=== PATIENT | male | born 1970 | race Caucasian/White ===

== ENCOUNTER → 2017-09-17 08:26 | Outpatient (CLI) | payer OTHER, SELFPAY ==
--- NOTE | 2017-09-17 | DI.ECHO.S_ITS ---
[facility]---------+ [facility] +---------+ : : [address] : [address] : : : : [id number] : : : : Phone: [phone]+ Echocardiogram Report + + :Name: TEN BROOSK Study Date: 09/17/2017 Height: 71 in : :[facility] Exam Location: [facility] Weight: 185 lb : : Gender: Male BSA: 2.0 m2 : :: 1970 Age: 47 yrs BP: 125/95 mmHg: :Reason For Study: Chemotherapy F/U (ICD Code V67.2) : : Performed By: Zenaida Page : :Referring: HUGO MCCALL : + + Interpretation Summary Left ventricular systolic function is low normal with the ejection fraction visually estimated to be 50-55% without focal wall motion abnormalities and appears slightly less dynamic compared to the previous study. The left ventricle is normal in size and diastolic parameters suggest normal left ventricular diastolic function and normal filling pressures. The right ventricle is mildly dilated and right ventricular systolic function is at the lower limits of normal. The right ventricle appears slightly larger and slightly less dynamic compared to the previous study. The right ventricular systolic pressure is estimated at 24 mmHg assuming a right atrial pressure of 3 mm Hg, and is unchanged compared to the previous study. The left atrium is severely dilated and the right atrium is mild to moderately dilated. Both atria have significantly increased in size since the prior echo exam. There is mild mitral regurgitation that is unchanged compared to the previous study but there is no other significant valvular heart disease. There is no pericardial effusion. Procedure: A two-dimensional transthoracic echocardiogram with color flow and Doppler was performed. The study quality was technically adequate. Comparison is made with the echocardiogram of 05/13/2017. The patient was in sinus bradycardia with heart rates between 54-63 bpm during the exam. Left Ventricle: The left ventricle is normal in size. Left ventricular wall thickness is normal. Left ventricular systolic function is low normal. The ejection fraction is estimated to be 50-55%. There are no focal wall motion abnormalities. This is slightly less dynamic compared to the previous study. Assessment of diastolic parameters indicates normal left ventricular diastolic function and normal filling pressures. Right Ventricle: The right ventricle is mildly dilated. Right ventricular systolic function is at the lower limits of normal. This is slightly larger and slightly less dynamic compared to the previous study. Atria: The left atrium is severely dilated. Both atria have significantly increased in size since the prior echo exam. The right atrium is mild to moderately dilated. There is no Doppler evidence for an interatrial shunt. Mitral Valve: The mitral valve is normal in structure and function. There is mild mitral regurgitation. This is unchanged compared to the previous study. Aortic Valve: The aortic valve is trileaflet. The aortic valve opens well. No aortic regurgitation is present. Tricuspid Valve: The tricuspid valve leaflets are thin and pliable. There is trace tricuspid regurgitation. The right ventricular systolic pressure is estimated at 24 mmHg assuming a right atrial pressure of 3 mm Hg. This is unchanged compared to the previous study. Pulmonic Valve: The pulmonic valve is not well visualized. There is trace pulmonic regurgitation. This is unchanged compared to the previous study. There is no other significant valvular heart disease. Great Vessels: The aortic root is normal size. The ascending aorta is normal in size. The aortic arch could not be visualized. The pulmonary artery is not well visualized, but is probably normal size. The IVC is of normal diameter and collapses greater than 50% with a sniff. This suggests a low right atrial pressure of 3 mm Hg. Pericardium/ Pleura There is no pericardial effusion. There is no pleural effusion. MMode/2D Measurements & Calculations LVIDd: 5.0 cm Ao root diam: 3.7 cm LVIDs: 4.0 cm asc Aorta Diam: 3.1 cm FS: 19.4 % EPSS: 0.15 cm IVSd: 0.81 cm LVPWd: 0.68 cm LV motley. diameter/BSA (cm/m^2): 2.5 LV sys. diameter/BSA (cm/m^2): 2.0 LA A2 area: 31.8 cm2 RA long axis: 5.6 cm LA A4 area: 25.3 cm2 RA area: 22.9 cm2 LA length (vol): 6.0 cm RA vol: 79.5 ml LA vol: 113.8 ml RA : 39.0 ml/m2 LA vol index: 55.8 ml/m2 IVC diam: 2.1 cm RVD1 (basal): 4.9 cm Doppler Measurements & Calculations Ao V2 max: 116.7 cm/sec LVOT Max Eric: 82.1 cm/sec Ao V2 mean: 87.5 cm/sec LV V1 max P.7 mmHg Ao max P.5 mmHg LV V1 VTI: 16.5 cm Ao mean P.3 mmHg sev ratio: 0.76 Ao V2 VTI: 21.8 cm MV E max eric: 60.8 cm/sec TR max eric: 231.5 cm/sec MV A max eric: 39.2 cm/sec TR max P.4 mmHg MV E/A: 1.6 PA V2 max: 73.9 cm/sec Med Peak E' Eric: 7.5 cm/sec PA V2 mean: 54.9 cm/sec E/E' med: 8.1 PA mean P.3 mmHg Lat Peak E' Eric: 10.9 cm/sec PA Accel Time: 0.13 sec E/E' lat: 5.6 E/e' average: 6.8 MV dec time: 0.28 sec MV P1/2t: 81.9 msec MV P1/2t max eric: 61.0 cm/sec MVA(P1/2t): 2.7 cm2 Reading Physician:SHADI
--- NOTE | 2017-11-04 14:34 | ONC.NAV ---
Description: T/C Activity: Left message for pt to call me, requested return call. Plan to discuss pt's transfer of care back to [facility].
--- NOTE | 2017-11-05 15:02 | ONC.NAV ---
Description: T/C re: transfer of care back to [facility] Activity: Pt returned this WOOD HEEL FLAP TRIMMER's call re: coordination of care from [facility] back to [facility]. Pt states that he is feeling very glad to be able to return to [facility] for his ongoing care needs. He has an important appointment at [facility] on 11/13, at which time he will be getting scanned and seen by his Oncologist there. At that appointment, they will discuss whether or not he is a candidate for a stem cell transplant, or if a different type of treatment will be recommended, depending on the results. We discussed a plan for this WOOD HEEL FLAP TRIMMER to call him after Labor Day weekend, to determine what the next steps are and needs that we can support for him here in his [facility].
--- NOTE | 2017-11-26 14:51 | ONC.NAV ---
Description: T/C re: continued plan of care Activity: Left a message for patient inquiring about the outcome from his [facility] visit, and if he is planning on resuming care here at [facility], or [place]. Requested a return call.
--- NOTE | 2017-11-28 11:09 | ONC.NAV ---
Description: T/C from pt's re: plan of care Activity: Pt's returned this SURGICAL AIDES TEACHER's call re: his medical status and plan for continued care, after his [facility] appointment at the end of October. She shared that pt has been actively involved in treatment at [facility], and that this coming Saturday he has a surgical biopsy procedure to take tissue samples of the remaining large mass underneath his colon. Depending on the pathology, he will either move forward with transplant (if it turns out to be large B cell lymphoma), or develop a new plan if it's follicular lymphoma. Either way, he will be remaining at [facility] for his care for now. She also stated that once he has a plan, and he can receive treatments here in [place], that they will most definately be calling and re-establishing care here.
--- NOTE | 2017-12-24 13:40 | ONC.NAV ---
Description: Care Coordination re: Auth for Neulasta injections Activity: This GREASE REFINING SUPERVISOR requested assistance from [place] case-manager internal for assistance in obtaining Neulasta authorizations, per the request of CATIE Horton. Please see the secure email correspondence below: Orion Rehman, I wanted to reach out to you and see if we could ask for your assistance in getting an authorization for 2-doses of Neulasta. He is currently getting prepped by [facility] for pre-stem cell transplant, however he is asking if he can get his Neulasta shot here both this month and next month, instead of driving all the way to [place] for just an injection. This would be so helpful for us if you can help. Thanks so much, Vanessa
--- NOTE | 2018-01-02 13:47 | ONC.NAV ---
Description: T/C re: [facility]/Auth for Neulasta Activity: Called Shea RN coordinator at [facility] ([phone]) to clarify that we were unable to obtain an auth for this medication, due to no response from [place] case-manager family, and are needing to request that [facility] obtain whatever authorizations and medications for pt that he needs due to this barrier. Left the same message for pt on their home voicemail.
== END ==
PROVIDERS: Family Provider Specialist; Visit Provider Family Medicine
DX: I51.7 Cardiomegaly (principal); Z79.899 Other long term (current) drug therapy
CPT/HCPCS: 93306

== ENCOUNTER → 2022-11-09 07:23 | Outpatient (CLI) | payer OTHER, SELFPAY | PROVIDERS: Family Provider Family Medicine; PCP Family Medicine; Referring Provider Family Medicine; Visit Provider Family Medicine | DX: R06.00 Dyspnea, unspecified (principal); C85.90 Non-Hodgkin lymphoma, unspecified, unspecified site; Z92.21 Personal history of antineoplastic chemotherapy | CPT/HCPCS: 94060; 94726; 94729 ==

== ENCOUNTER → 2022-11-12 09:19 | Outpatient (CLI) | payer OTHER, SELFPAY ==
--- NOTE | 2022-11-12 | DI.ECHO.S_ITS ---
[facility] +---------+ [facility] +---------+ : : [address] : : : : [place] : : : : [id number] : : : : Phone: [phone]---------+ Echocardiogram Report + + :Name: TEN BROOKS Study Date: 11/12/2022 Height: 71 in : :[facility] ReadingLocation: Weight: 180 lb : : Gender: Male BSA: 2.0 m2 : :: 1970 Age: 52 yrs BP: 146/111 mmHg: :Reason For Study: Dyspnea : :Ordering Physician: STEFANY, : :HUGO Brock Performed By: Lianne Keita : :Referring: HUGO MCCALL : + + Interpretation Summary Left ventricular systolic function is probably normal. The ejection fraction is estimated to be 45-50%. There are no obvious focal wall motion abnormalities noted but poor endocardial definition reduces the sensitivity for the detection of such. There is mild tricuspid regurgitation. Procedure: A two-dimensional transthoracic echocardiogram with color flow and Doppler was performed. The study quality was technically adequate. Comparison is made with the echocardiogram of 09/17/2017. The patient was in atrial fibrillation with heart rates between 60-165 bpm during the exam. Left Ventricle: The left ventricle is normal in size. Left ventricular systolic function is probably normal. The ejection fraction is estimated to be 45-50%. There are no obvious focal wall motion abnormalities noted but poor endocardial definition reduces the sensitivity for the detection of such. Diastolic function could not be accurately assessed due to atrial fibrillation. Right Ventricle: The right ventricle is normal in size and function. Atria: The left atrium is borderline dilated. Right atrial size is normal. There is no Doppler evidence for an interatrial shunt. Mitral Valve: The mitral valve is normal. There is no mitral valve stenosis. There is trace mitral regurgitation. Aortic Valve: The aortic valve is trileaflet. The aortic valve opens well. There is no aortic valve stenosis. No aortic regurgitation is present. Tricuspid Valve: The tricuspid valve is normal. There is no tricuspid stenosis. There is mild tricuspid regurgitation. Pulmonic Valve: The pulmonic valve leaflets are thin and pliable; valve motion is normal. There is no pulmonic valvular stenosis. There is trace pulmonic regurgitation. Great Vessels: The aortic root is normal size. The ascending aorta is normal in size. The pulmonary artery is normal size. The IVC is of normal diameter and collapses greater than 50% with a sniff. This suggests a low right atrial pressure of 3 mm Hg. Pericardium/ Pleura There is no pericardial effusion. There is no pleural effusion. MMode/2D Measurements & Calculations LVIDd: 3.8 cm LVOT diam: 2.0 cm LVIDs: 2.7 cm Ao root diam: 3.3 cm FS: 28.9 % asc Aorta Diam: 3.2 cm IVSd: 0.80 cm LVPWd: 0.70 cm LV motley. diameter/BSA (cm/m^2): 1.9 LV sys. diameter/BSA (cm/m^2): 1.3 LA A2 area: 24.5 cm2 RA long axis: 4.4 cm LA A4 area: 16.2 cm2 RA area: 11.8 cm2 LA length (vol): 6.1 cm RA vol: 26.9 ml LA vol: 55.3 ml RA : 13.3 ml/m2 LA vol index: 27.4 ml/m2 RVD1 (basal): 3.7 cm LVLs ap4: 6.6 cm LVLd ap2: 7.8 cm TAPSE_phl: 2.3 cm LVLs ap2: 7.1 cm Doppler Measurements & Calculations Ao V2 max: 144.7 cm/sec LVOT Max Eric: 102.0 cm/sec Ao V2 mean: 100.6 cm/sec LV V1 max P.2 mmHg Ao max P.0 mmHg LV V1 VTI: 15.3 cm Ao mean P.7 mmHg YUNI(I,D): 1.8 cm2 Ao V2 VTI: 27.2 cm YUNI(V,D): 2.2 cm2 sev ratio: 0.56 YUNI indexed to BSA (cm^2/m^2): 0.88 PA V2 max: 123.0 cm/sec SV(LVOT): 48.1 ml PA V2 mean: 90.2 cm/sec PA mean P.0 mmHg AV VR_phl: 0.70 YUNI(VTI)/BSA_phl: 0.88 Reading Physician:10:25 AM
== END ==
PROVIDERS: Family Provider Family Medicine; PCP Family Medicine; Referring Provider Family Medicine; Visit Provider Family Medicine
DX: C85.90 Non-Hodgkin lymphoma, unspecified, unspecified site (principal); I07.1 Rheumatic tricuspid insufficiency; R06.00 Dyspnea, unspecified; Z92.21 Personal history of antineoplastic chemotherapy
CPT/HCPCS: 93306

== ENCOUNTER → 2023-04-02 17:05 | Outpatient (CLI) | payer OTHER, SELFPAY | PROVIDERS: Family Provider Family Medicine; PCP Family Medicine; Referring Provider Family Medicine; Visit Provider Family Medicine | DX: R06.00 Dyspnea, unspecified (principal); T50.995A Adverse effect of other drugs, medicaments and biological substances, initial encounter | CPT/HCPCS: 94060; 94729 ==

== ENCOUNTER 2023-07-01 18:59 | Emergency (ER) | payer OTHER, SELFPAY ==
[2023-07-01] VITALS (12 sets, daily range): BP systolic 114–168; BP diastolic 63–80; PULSE 83–104; RESP 17–39; TEMP 37–38.4; O2SAT 94–95; BMI 25.1
--- NOTE | 2023-07-01 19:21 | DI.RAD.S_ITS ---
PROCEDURE: XR CHEST 1V INDICATIONS: suspected sepsis TECHNIQUE: One view of the chest was acquired. COMPARISON: [facility], , CHEST 1 VIEW, 05/01/2017, 15:39. FINDINGS: Surgical changes and devices: Right chest wall Port-A-Cath tip is in SVC. Lungs and pleura: Subtle increased opacity in left infrahilar region and left lung base is seen. Right lung is clear. No pleural effusions or pneumothorax. Mediastinum: Mediastinal contours appear normal. Heart size is normal. Bones and chest wall: No suspicious bony lesions. Overlying soft tissues appear unremarkable. IMPRESSION: Finding is concerning for small left lower lobe infiltrate versus atelectasis. No pleural effusion or pneumothorax. Dictated by: David Sneed M.D. on 07/01/2023 at 19:57 Approved by: David Sneed M.D. on 07/01/2023 at 19:58
[2023-07-01 19:48] LABS: Bacteria Urine Occasional (0-1); Culture Indicated Urine Cult Not Indicated; RBC Urine None Seen (0-5/HPF); Squamous Epithelial Cell Urine None Seen (0-5/HPF); Urine Volume 10mL (spun); WBC Urine 0-1/HPF (0-5/HPF)
[2023-07-01 20:05] LABS: Add Manual Diff / Slide Review NO; Basophils Absolute Auto 0 /uL (0-100); Basophils Percent Auto 0.4 % (0-2); Eosinophils Absolute Auto 100 /uL (0-450); Eosinophils Percent Auto 0.5 % (2-4); Hematocrit 31.2 % (41-53); Hemoglobin 10.5 g/dL (13.5-17.5); Lymphocytes Absolute Auto 1100 /uL (1100-4500); Lymphocytes Percent Auto 9.6 % (25-40); Mean Corpuscular HGB Conc 33.7 % (30-36); Mean Corpuscular Hemoglobin 31.9 PG (26-34); Mean Corpuscular Volume 94.6 fL (80-100); Monocytes Absolute Auto 700 /uL (0-900); Monocytes Percent Auto 6.5 % (3-14); Neutrophils Absolute Auto 9600 /uL (1500-7000); Platelet Count 264 X10^3/uL (150-400); Red Blood Cell Count 3.29 X10^6/uL (4.5-5.9); Red Cell Distribution Width 14.8 % (11.6-14.8); White Blood Cell Count 11.5 X10^3/uL (4.5-11.0)
[2023-07-01] MEDS: SODIUM CHLORIDE 0.9% 1,000 ML 1000 ML IV (20:10)
[2023-07-01] MEDS: cefTRIAXone 2,000 MG in SODIUM CHLORIDE 0.9% 100 ML 200 MG IV (20:10)
[2023-07-01 20:19] LABS: INR 1.2 (0.9-1.3); Prothrombin Time 13.4 SECONDS (9.4-12.5)
[2023-07-01 20:22] LABS: PTT Partial Thromboplastin Tim 31 SECONDS (25.1-36.5)
[2023-07-01 20:23] LABS: Lactate (Lactic Acid) 0.9 mmol/L (0.7-2.1)
[2023-07-01 20:24] LABS: Alanine Aminotransferase 146 IU/L (<50); Albumin 4.2 g/dL (3.5-5.0); Albumin Globulin Ratio 1.1 (1.0-2.8); Alkaline Phosphatase 266 U/L (38-126); Aspartate Aminotransferase 146 IU/L (17-59); BUN Creatinine Ratio 13.8 (6-22); Bilirubin Total 0.7 mg/dL (0.2-1.3); Blood Urea Nitrogen 20 mg/dL (9-20); Calcium 9.1 mg/dL (8.4-10.2); Carbon Dioxide 18 mmol/L (22-32); Chloride 104 mmol/L (98-107); Estimated Glomerular Filt Rate 57 mL/min (>60); Globulin 3.8 g/dL (1.7-4.1); Glucose 120 mg/dL (70-100); HEMOLYSIS < 15 (0-50); Lipase 56 U/L (23-300); Potassium 3.3 mmol/L (3.4-5.1); Sodium 134 mmol/L (137-145)
[2023-07-01 20:41] LABS: Procalcitonin 1.39 ng/mL (<0.5)
[2023-07-01 20:59] LABS: Adenovirus Not Detected (Not Detect); B. parapertussis Not Detected (Not Detecte); Bordetella pertussis Not Detected (Not Detect); Chlamydophila pneumoniae Not Detected (Not Detect); Coronavirus 229E Not Detected (Not Detect); Coronavirus HKU1 Not Detected (Not Detect); Coronavirus NL 63 Not Detected (Not Detect); Coronavirus OC43 Not Detected (Not Detect); Human Metapneumovirus Not Detected (Not Detect); Human Rhinovirus/Enterovirus Not Detected (Not Detect); Influenza A Not Detected (Not Detect); Influenza B Not Detected (Not Detect); Mycoplasma pneumoniae Not Detected (Not Detect); Parainfluenza Virus 1 Not Detected (Not Detect); Parainfluenza Virus 2 Not Detected (Not Detect); Parainfluenza Virus 3 Not Detected (Not Detect); Parainfluenza Virus 4 Not Detected (Not Detect); Respiratory Syncytial Virus Not Detected (Not Detect); SARS- CoV-2 Not Detected (Not Detecte)
--- NOTE | 2023-07-01 21:06 | ED_ITS ---
HPI - Back Pain/Injury General Chief Complaint: Back Pain/Injury Stated Complaint: States Kidney Stone Time Seen by Provider: 07/01/23 19:27 Source: patient History of Present Illness HPI Narrative: 52-year-old male with history of non-Hodgkin's lymphoma, status post stem cell transplant in 05/2019, now in remission presents by private vehicle from home for left-sided flank pain. Patient states that he was concerned that he may have a kidney stone. He also reports that he has had a productive cough and nasal congestion for the last 5 days. 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 Related Data Home Medications Medication Instructions Recorded Confirmed carole (Zingiber officinalis) 550 550 mg PO BID ##0 05/10/17 08/21/17 mg capsule pyridoxine (vitamin B6) 100 mg 300 mg PO QDAY ##0 05/10/17 08/21/17 tablet [TART MANE EXTRACT] PO Q DAY ##0 05/28/17 ibuprofen 400 mg tablet (IBU) 400 mg PO 2XW ##0 05/28/17 08/21/17 alprazolam 0.5 mg tablet (Xanax) 0.5 mg PO QDAYP PRN Anxiety 07/31/17 08/21/17 prednisone 50 mg tablet 100 mg PO QAM 07/31/17 08/21/17 sennosides 8.6 mg-docusate sodium 1 - 2 tab PO BIDP PRN Insomnia 08/21/17 08/21/17 50 mg tablet (Senna with Docusate Sodium) Previous Rx's Medication Instructions Recorded lorazepam 0.5 mg tablet (Ativan) 1 - 3 tab PO Q8HP PRN #60 tabs 04/30/17 lidocaine-prilocaine 2.5 %-2.5 % 1 anitra topical PRN PRN ##30 05/01/17 topical cream ondansetron 8 mg disintegrating 8 mg sublingual Q6HP PRN #30 tabs 05/03/17 tablet lactulose 10 gram/15 mL oral 10 gm PO TIDP PRN #360 mL 05/10/17 solution allopurinol 100 mg tablet 100 mg PO BID #120 tabs 06/18/17 ibuprofen 800 mg tablet 800 mg PO TIDP PRN #120 tabs 04/03/18 amoxicillin 875 mg-potassium 1 tab PO Q12H #10 tabs 07/01/23 clavulanate 125 mg tablet doxycycline hyclate 100 mg tablet 100 mg PO BID #10 tabs 07/01/23 tramadol 50 mg tablet 50 mg PO Q8H PRN pain #10 tabs 07/01/23 Allergies Allergy/AdvReac Type Severity Reaction Status Date / Time No Known Drug Allergies Allergy Verified 07/29/17 13:17 Review of Systems Review of Systems Narrative: see HPI Patient History Social History Smoking Status: Never smoker Smoking Status: Never smoker Substance Use Type: does not use Exam Initial Vital Signs Initial Vital Signs: Vital Signs Temperature 101.1 F H 07/01/23 19:13 Pulse Rate 104 H 07/01/23 19:13 Respiratory Rate 18 07/01/23 19:13 Blood Pressure 136/78 07/01/23 19:13 Pulse Oximetry 95 07/01/23 19:13 Oxygen Delivery Method Room Air 07/01/23 19:13 Const: Awake, alert, ill-appearing, nontoxic Cardiac: Tachycardia, regular rhythm RESP: unlabored, decrease LLL, no wheezing GI: Soft, nontender, nondistended MSK: Atraumatic, full range of motion, pulses equal Skin: Warm, Dry, intact, no rashes Neuro: AO x3, CN II-XII grossly intact, moves all extremities Course Orders Ordered: ED Orders 07/01/23 19:21 XR chest 1V Stat EKG-12 Lead Stat RT Consult Eval and Treat NOW 07/01/23 19:33 Urine Microscopic Stat 07/01/23 19:35 Respiratory Panel (Film Array) Stat 07/01/23 19:55 Blood Culture Stat Complete Blood Count AUTO DIFF Stat Comprehensive Metabolic Panel Stat Lactate (Lactic Acid) Stat Lipase Stat PTT Partial Thromboplastin Jenaro Stat Procalcitonin Stat Prothrombin Time INR Stat 07/01/23 21:06 CT chest w con Stat Discontinued Medications Acetaminophen (Acetaminophen 325 Mg Tablet) 975 mg PO NOW ONE Stop: 07/01/23 19:28 Last Admin: 07/01/23 20:18 Dose: Not Given Documented By: MIKY Acetaminophen (Acetaminophen 325 Mg Tablet) 975 mg PO NOW ONE Stop: 07/01/23 23:01 Last Admin: 07/01/23 23:02 Dose: 975 mg Documented By: MIKY Azithromycin (Azithromycin 250 Mg Tablet) 500 mg PO NOW ONE Stop: 07/01/23 22:49 Last Admin: 07/01/23 22:58 Dose: 500 mg Documented By: MIKY Sodium Chloride (Normal Saline 0.9%) 1,000 mls @ 1,000 mls/hr IV BOLUS ONE Stop: 07/01/23 20:20 Last Infusion: 07/01/23 21:42 Dose: Infused Documented By: Admin: 07/01/23 20:10 Dose: 1,000 mls/hr Documented By: MIKY Ceftriaxone Sodium 2,000 mg/ (Sodium Chloride) 100 mls @ 200 mls/hr IV NOW ONE Stop: 07/01/23 19:28 Last Infusion: 07/01/23 21:07 Dose: Infused Documented By: Admin: 07/01/23 20:10 Dose: 200 mls/hr Documented By: MIKY Ondansetron HCl (Ondansetron 4 Mg/2 Ml Inj) 4 mg IV NOW PRN PRN Reason: Nausea And Vomiting Ondansetron HCl (Ondansetron 4 Mg Odt) 4 mg SL NOW PRN PRN Reason: Nausea And Vomiting Vital Signs Vital signs: Vital Signs - 8 hr 07/01/23 19:31 07/01/23 19:32 07/01/23 19:45 Temperature Pulse Rate 96 H 92 H Respiratory Rate 23 29 H Blood Pressure 168/80 H Pulse Oximetry 94 Oxygen Delivery Method 07/01/23 20:00 07/01/23 20:00 07/01/23 20:15 Temperature Pulse Rate 95 H 92 H Respiratory Rate 26 H 39 H Blood Pressure 139/72 Pulse Oximetry 95 95 Oxygen Delivery Method 07/01/23 20:30 07/01/23 20:30 07/01/23 20:45 Temperature Pulse Rate 90 83 Respiratory Rate 22 22 Blood Pressure 129/65 Pulse Oximetry 94 94 Oxygen Delivery Method 07/01/23 21:00 07/01/23 21:00 07/01/23 21:15 Temperature Pulse Rate 89 83 Respiratory Rate 17 19 Blood Pressure 128/69 Pulse Oximetry 95 94 Oxygen Delivery Method Room Air Room Air 07/01/23 21:30 07/01/23 21:30 07/01/23 23:05 Temperature Pulse Rate 85 Respiratory Rate 20 Blood Pressure 114/63 125/72 Pulse Oximetry 95 Oxygen Delivery Method Room Air 07/01/23 23:05 Temperature 98.6 F Pulse Rate 85 Respiratory Rate 20 Blood Pressure Pulse Oximetry 95 Oxygen Delivery Method Room Air MDM - Back Pain/Injury Differential Diagnosis Differential diagnosis: Likely sciatica, strain of lumbar region and renal colic Lab Data 07/01/23 19:55 07/01/23 19:55 Labs: Lab Results 07/01/23 07/01/23 07/01/23 Range/Units 19:33 19:35 19:55 WBC 11.5 H (4.5-11.0) X10^3/uL RBC 3.29 L (4.5-5.9) X10^6/uL Hgb 10.5 L (13.5-17.5) g/dL Hct 31.2 L (41-53) % MCV 94.6 (80-100) fL MCH 31.9 (26-34) PG MCHC 33.7 (30-36) % RDW 14.8 (11.6-14.8) % Plt Count 264 (150-400) X10^3/uL Neut % (Auto) 83.0 H (50-75) % Lymph % (Auto) 9.6 L (25-40) % [place] % (Auto) 6.5 (3-14) % Eos % (Auto) 0.5 L (2-4) % Baso % (Auto) 0.4 (0-2) % Neut # (Auto) 9600 H (8970-0857) /uL Lymph # (Auto) 1100 (0872-9199) /uL [place] # (Auto) 700 (0-900) /uL Eos # (Auto) 100 (0-450) /uL Baso # (Auto) 0 (0-100) /uL PT 13.4 H (9.4-12.5) SECONDS INR 1.2 (0.9-1.3) APTT 31 (25.1-36.5) SECONDS Sodium 134 L (137-145) mmol/L Potassium 3.3 L (3.4-5.1) mmol/L Chloride 104 (98-107) mmol/L Carbon Dioxide 18 L (22-32) mmol/L BUN 20 (9-20) mg/dL Creatinine 1.45 H (0.66-1.25) mg/dL Estimated GFR 57 L (>60) mL/min BUN/Creatinine Ratio 13.8 (6-22) Glucose 120 H (70-100) mg/dL Lactate 0.9 (0.7-2.1) mmol/L Calcium 9.1 (8.4-10.2) mg/dL Total Bilirubin 0.7 (0.2-1.3) mg/dL AST 146 H (17-59) IU/L ALT 146 H (<50) IU/L Alkaline Phosphatase 266 H (38-126) U/L Total Protein 8.0 (6.3-8.2) g/dL Albumin 4.2 (3.5-5.0) g/dL Globulin 3.8 (1.7-4.1) g/dL Albumin/Globulin Ratio 1.1 (1.0-2.8) Lipase 56 (23-300) U/L Procalcitonin 1.39 H (<0.5) ng/mL Urine RBC None seen (0-5/HPF) Urine WBC 0-1/hpf (0-5/HPF) Ur Squamous Epith Cells None seen (0-5/HPF) Urine Bacteria Occasional (0-1) (None) Ur Culture Indicated? Cult not indicated Vol Urine Centrifuged 10ml (spun) Chlamy pneumoniae PCR Not detected (Not Detect) Adenovirus (PCR) Not detected (Not Detect) B.parapertussis DNA PCR Not detected (Not Detecte) Coronavirus OC43 (PCR) Not detected (Not Detect) Coronavirus HKU1 (PCR) Not detected (Not Detect) Coronavirus 229E (PCR) Not detected (Not Detect) SARS-CoV-2 (PCR) Not detected (Not Detecte) Coronavirus NL63 (PCR) Not detected (Not Detect) Human Metapneumovir PCR Not detected (Not Detect) Influenza Type A (PCR) Not detected (Not Detect) Influenza Type B (PCR) Not detected (Not Detect) M. pneumoniae (PCR) Not detected (Not Detect) Parainfluenza 1 (PCR) Not detected (Not Detect) Parainfluenza 2 (PCR) Not detected (Not Detect) Parainfluenza 3 (PCR) Not detected (Not Detect) Parainfluenza 4 (PCR) Not detected (Not Detect) RSV (PCR) Not detected (Not Detect) Entero/Rhino (PCR) Not detected (Not Detect) Urine Dip Bedside Urine Glucose Negative Bedside Urine Bilirubin - Negative Bedside Urine Ketone +/- 5 Urine Specific [place] 1.020 Bedside Urine Occult Blood + Bedside Urine pH 6.0 Bedside Urine Protein +++ 300 Bedside Urine Urobilinogen - Negative Bedside Urine Nitrite - Negative Bedside Urine Leukocytes - Negative Esterase Imaging Data Chest x-ray: Radiologist's Impression: PROCEDURE: XR CHEST 1V INDICATIONS: suspected sepsis TECHNIQUE: One view of the chest was acquired. COMPARISON: [facility], CHEST 1 VIEW, 05/01/2017, 15:39. FINDINGS: Surgical changes and devices: Right chest wall Port-A-Cath tip is in SVC. Lungs and pleura: Subtle increased opacity in left infrahilar region and left lung base is seen. Right lung is clear. No pleural effusions or pneumothorax. Mediastinum: Mediastinal contours appear normal. Heart size is normal. Bones and chest wall: No suspicious bony lesions. Overlying soft tissues appear unremarkable. IMPRESSION: Finding is concerning for small left lower lobe infiltrate versus atelectasis. No pleural effusion or pneumothorax. Dictated by: David Sneed M.D. on 07/01/2023 at 19:57 Approved by: David Sneed M.D. on 07/01/2023 at 19:58 CT scan - chest: Radiologist's Impression: PROCEDURE: CT CHEST W CON INDICATIONS: COUGH, FLANK PAIN, PNA, FUNGAL VS BACTERIAL PER RODOCarmenza FALCONCH TECHNIQUE: After the administration of intravenous contrast, 5 mm thick sections acquired from the pulmonary apices to the posterior costophrenic angles. 1 mm axial lung, 5 mm thick coronal and sagittal reformats and 7 mm axial MIP were acquired. For radiation dose reduction, the following was used: automated exposure control, adjustment of mA and/or kV according to patient size. COMPARISON: [facility], XR CHEST 1V, 07/01/2023, 19:30. FINDINGS: Image quality: Diagnostic. Lower Neck: No enlarged lymph nodes. Thyroid: No thyroid nodules which require sonographic follow up, per consensus guidelines. Axillae: No enlarged lymph nodes. Chest Wall: Right chest wall Port-A-Cath with tip in the superior vena cava. Bones: Mild degenerative changes of the spine. Lungs and Pleura: Left lower lobe consolidative opacity. Ground-glass and mild consolidation within the posterior right upper lobe. Ground-glass and consolidation within the basilar right lower lobe. Lingular subpleural nodule measuring 3 mm, favored to represent an intrapulmonary lymph node. Heart: Heart size is normal. Trace pericardial effusion. Thoracic Vessels: The aorta and pulmonary arteries demonstrate normal size. Mediastinum and Meera: Prominent and mildly enlarged mediastinal and hilar lymph nodes. Esophagus: No wall thickening. No hiatal hernia. Upper Abdomen: Visualized upper abdomen solid organs and bowel loops appear normal. IMPRESSION: Ground-glass and consolidative opacities, largest within the left lower lobe. Findings are concerning for multifocal pneumonia. Dictated by: Hakan Adler M.D. on 07/01/2023 at 22:07 Approved by: Hakan Adler M.D. on 07/01/2023 at 22:10 ECG Data Interpretation: Sinus tachycardia at 92 beats per minute, normal OR, no ST T wave changes MDM Narrative Medical decision making narrative: Ill-appearing but nontoxic patient presenting for left-sided pain. He states he thinks that he may have a kidney stone, however he denies previous history of kidney stones and has associated upper respiratory symptoms. Noted to be febrile on arrival with coarse cough. Suspect upper respiratory component as source of patient's pain rather than renal colic. Tylenol ordered for pain, empiric Rocephin ordered. IV NS ordered. Laboratory work is significant for WBC count 11.5, hemoglobin 10.5, platelets 264, sodium 134, potassium 3.3, creatinine 1.45, AST 146, ALT 146, alk phos 266. Chest x-ray shows left lower lobe infiltrate versus atelectasis. Point of care urine shows no evidence of infection or hematuria. at bedside states that patient has had chronic cough since his stem cell transplant, which he was told was normal, however apparently Rodo Leal in [place] wanted patient to get a CT scan to see if the patient's cough was possibly fungal versus bacterial. CT of the chest ordered for assessment. CT chest shows left-sided infiltrate with trace right upper lobe infiltrate concerning for multifocal pneumonia. Patient given azithromycin, he had already received Rocephin. Patient and at bedside counseled on all lab and imaging findings. There are no recent lab results for comparison, the previous lab results are all from 2019, however patient states that he was aware of his anemia, creatinine, and liver enzymes. He will follow up with his normal physicians. Antibiotics sent to pharmacy of choice. Patient states that he has an incentive spirometer that he will use at home. Discharge Plan Departure Patient Disposition: Home Clinical Impression: Pneumonia Instructions: DI for Pneumonia -- Adult Activity Restrictions/Additional Instructions: Your CT today showed pneumonia. It was primarily in the left lower lung but there is a very small amount in the right upper lung. You has been given antibiotics here and will be sent home with a prescription for additional antibiotics. Your laboratory work today showed a slight increase in your creatinine, or kidney function, compared to previous values in 2018. I recommend comparing these results with your oncology results. Use the incentive spirometer that you have at home to make sure that you take deep breaths. Prescriptions: New amoxicillin-pot clavulanate 875-125 mg tablet 1 tab PO Q12H Qty: 10 0RF doxycycline hyclate 100 mg tablet 100 mg PO BID Qty: 10 0RF tramadol 50 mg tablet 50 mg PO Q8H PRN (Reason: pain) Qty: 10 0RF No Action lorazepam [Ativan] 0.5 MG tablet 1 - 3 tab PO Q8HP PRNQty: 60 0RF lidocaine-prilocaine 2.5 %/2.5 % cream 1 anitra Topical PRN PRNQty: 30 1RF ondansetron 8 MG tablet,disintegrating 8 mg Sublingual Q6HP PRNQty: 30 2RF pyridoxine (vitamin B6) 100 MG tablet 300 mg PO QDAY Qty: 0 carole (Zingiber officinalis) 550 MG capsule 550 mg PO BID Qty: 0 lactulose 10 GM/15 ML solution 10 gm PO TIDP PRNQty: 360 0RF ibuprofen [IBU] 400 MG tablet 400 mg PO 2XW Qty: 0 [TART MANE EXTRACT] capsule PO Q DAY Qty: 0 ibuprofen 800 MG tablet 800 mg PO TIDP PRNQty: 120 3RF allopurinol 100 MG tablet 100 mg PO BID Qty: 120 2RF prednisone 50 MG tablet 100 mg PO QAM Patient Comments: 100 mg qday for 5 days first week of RCHOP cycle alprazolam [Xanax] 0.5 MG tablet 0.5 mg PO QDAYP PRN (Reason: Anxiety) sennosides-docusate sodium [Senna with Docusate Sodium] 8.6 MG/50 MG tablet 1 - 2 tab PO BIDP PRN (Reason: Insomnia) Referrals: Lisandra Majano DO [Primary Care Provider] - Stand Alone Forms: Patient Portal/API
[2023-07-01] MEDS: AZITHROMYCIN 250 MG TABLET 500 MG PO (22:58)
[2023-07-01] MEDS: ACETAMINOPHEN 325 MG TABLET 975 MG PO (23:02)
== END 2023-07-01 23:19 | disposition home or self-care (01) ==
PROVIDERS: Emergency Provider Emergency Medicine; Family Provider Family Medicine; PCP Family Medicine
DX: J18.9 Pneumonia, unspecified organism (principal)
CPT/HCPCS: 36415; 71045; 71260; 80053; 81003; 81015; 83605; 83690; 84145; 85025; 85610; 85730; 87040; 87633; 93005; 96365; 99284; J0696

== ENCOUNTER → 2023-12-26 09:18 | Outpatient (CLI) | payer OTHER, SELFPAY ==
--- NOTE | 2023-12-26 09:19 | DI.ECHO.S_ITS ---
[facility] : : [address] : : [place] : : [id number] : : Phone: [phone] Echocardiogram Report + + :Name: TEN BROOKS Study Date: 12/26/2023 Height: 70 in : :Hospital ReadingLocation: Weight: 180 lb : : Gender: Male BSA: 2.0 m2 : :: 1970 Age: 53 yrs BP: 153/92 mmHg: :Reason For Study: CARDIOMYOPATHY : :Ordering Physician: RHIANNA, : :CHING Performed By: Pepper Harrison : :Referring: CHING POZO : + + Interpretation Summary Limited Echo: 1) Normal left ventricular thickness, size, wall motion, and systolic function (EF 55-60%). 2) Normal right ventricular size and function. 3) Compared to the Echo done 11/12/2022, no significant change. Procedure: Images were not obtained from all of the standard acoustic windows due to the limited scope of the study. The study quality was technically adequate. Comparison is made with the echocardiogram of 11/12/2022. The patient was in sinus bradycardia with heart rates between 57- 62 bpm during the exam. Left Ventricle: The left ventricle is normal in size and wall thickness. The ejection fraction is estimated to be 55-60%. Left ventricular systolic function appears normal without focal wall motion abnormalities. Right Ventricle: The right ventricle is normal in size and function. Atria: The left atrial size is normal. Pericardium/ Pleura There is no pericardial effusion. There is no pleural effusion. MMode/2D Measurements & Calculations LVIDd: 4.6 cm LA A2 area: 17.8 cm2 LVIDs: 3.1 cm LA A4 area: 15.8 cm2 FS: 32.9 % LA length (vol): 4.7 cm EPSS: 0.70 cm LA vol: 51.2 ml IVSd: 0.81 cm LA vol index: 25.6 ml/m2 LVPWd: 0.79 cm LV motley. diameter/BSA (cm/m^2): 2.3 LV sys. diameter/BSA (cm/m^2): 1.5 Doppler Measurements & Calculations MV E max eric: 56.2 cm/sec MV A max eric: 43.1 cm/sec MV E/A: 1.3 Med Peak E' Eric: 12.3 cm/sec E/E' med: 4.6 Lat Peak E' Eric: 14.3 cm/sec E/E' lat: 3.9 E/e' average: 4.3 MV dec time: 0.31 sec Reading Physician:11:54 AM
== END ==
PROVIDERS: Family Provider Family Medicine; PCP Family Medicine; Referring Provider Internal Medicine Cardiovascular Disease; Visit Provider Internal Medicine Cardiovascular Disease
DX: I42.9 Cardiomyopathy, unspecified (principal)
CPT/HCPCS: 93307

== ENCOUNTER 2024-02-08 03:48 | Emergency (ER) | payer OTHER, SELFPAY ==
[2024-02-08] VITALS (10 sets, daily range): BP systolic 110–148; BP diastolic 65–82; PULSE 81–100; RESP 16–20; TEMP 37.5; O2SAT 93–99; BMI 24.8
--- NOTE | 2024-02-08 03:57 | DI.RAD.S_ITS ---
PROCEDURE: XR CHEST 2V INDICATIONS: fever, cough x 2 days TECHNIQUE: 2 views of the chest were acquired. COMPARISON: [facility], CR, XR CHEST 1V, 07/01/2023, 19:30. FINDINGS: Surgical changes and devices: Tunneled right port device is present. Lungs and pleura: Lungs are clear. No pleural effusions or pneumothorax. Mediastinum: Mediastinal contours are normal. Heart size is normal. Bones and chest wall: No suspicious bony abnormalities. Soft tissues appear unremarkable. IMPRESSION: No acute cardiopulmonary abnormality is seen. No significant discrepancy with the weather observer radiology preliminary report. Dictated by: Eugene Amador M.D. on 02/08/2024 at 8:31 Approved by: Eugene Amador M.D. on 02/08/2024 at 8:32
--- NOTE | 2024-02-08 03:59 | ED.SOB ---
HPI - SOB/Dyspnea General Chief Complaint: Shortness of Breath/Dyspnea Stated Complaint: thinks he has pneumonia Time Seen by Provider: 02/08/24 03:49 History of Present Illness HPI Narrative: 53-year-old male with history of non-Hodgkin's lymphoma status post bone marrow transplant, subsequently in remission presents by private vehicle from home with concerns that he may have pneumonia. Patient has been sick for the last 5 days and has been gradually worsening. Reports pain across the front of his chest, fatigue, shortness of breath. He reports T-max 100.7? at home. No medications taken today, throughout the week he has been intermittently taking NyQuil with no real relief. Also reporting some redness and crusting of his eyes starting this morning. Related Data Home Medications Medication Instructions Recorded Confirmed carole (Zingiber officinalis) 550 550 mg PO BID ##0 05/10/17 08/21/17 mg capsule pyridoxine (vitamin B6) 100 mg 300 mg PO QDAY ##0 05/10/17 08/21/17 tablet [TART MANE EXTRACT] PO Q DAY ##0 05/28/17 ibuprofen 400 mg tablet (IBU) 400 mg PO 2XW ##0 05/28/17 08/21/17 alprazolam 0.5 mg tablet (Xanax) 0.5 mg PO QDAYP PRN Anxiety 07/31/17 08/21/17 prednisone 50 mg tablet 100 mg PO QAM 07/31/17 08/21/17 sennosides 8.6 mg-docusate sodium 1 - 2 tab PO BIDP PRN Insomnia 08/21/17 08/21/17 50 mg tablet (Senna with Docusate Sodium) Previous Rx's Medication Instructions Recorded lorazepam 0.5 mg tablet (Ativan) 1 - 3 tab PO Q8HP PRN #60 tabs 04/30/17 lidocaine-prilocaine 2.5 %-2.5 % 1 anitra topical PRN PRN ##30 05/01/17 topical cream ondansetron 8 mg disintegrating 8 mg sublingual Q6HP PRN #30 tabs 05/03/17 tablet lactulose 10 gram/15 mL oral 10 gm PO TIDP PRN #360 mL 05/10/17 solution allopurinol 100 mg tablet 100 mg PO BID #120 tabs 06/18/17 ibuprofen 800 mg tablet 800 mg PO TIDP PRN #120 tabs 06/18/17 amoxicillin 875 mg-potassium 1 tab PO Q12H #10 tabs 07/01/23 clavulanate 125 mg tablet doxycycline hyclate 100 mg tablet 100 mg PO BID #10 tabs 07/01/23 tramadol 50 mg tablet 50 mg PO Q8H PRN pain #10 tabs 07/01/23 doxycycline hyclate 100 mg capsule 100 mg PO BID #10 caps 02/08/24 erythromycin 5 mg/gram (0.5 %) eye 1 cm EYE-BOTH QID 7 days #3.5 grams 02/08/24 ointment Allergies Allergy/AdvReac Type Severity Reaction Status Date / Time No Known Drug Allergies Allergy Verified 07/29/17 13:17 Patient History Social History Smoking Status: Never smoker Smoking Status: Never smoker Substance Use Type: does not use Exam Initial Vital Signs Initial Vital Signs: Vital Signs Temperature 99.5 F 02/08/24 03:54 Pulse Rate 96 H 02/08/24 03:54 Respiratory Rate 20 02/08/24 03:54 Blood Pressure 148/73 H 02/08/24 03:54 Pulse Oximetry 96 02/08/24 03:54 Oxygen Delivery Method Room Air 02/08/24 03:54 Const: Awake, alert, mildly ill-appearing, nontoxic appearing Eyes: Greenish yellow crusting of the eyelashes, mild conjunctival injection bilaterally Cardiac: regular rate, regular rhythm RESP: unlabored, speaking in complete sentences without dysGI: Soft, nontender, nondistended, no rebound, no guarding MSK: No edema, full range of motion, pulses equal Skin: Warm, Dry, intact, no rashes Neuro: AO x3, CN II-XII grossly intact, moves all extremities Course Orders Ordered: ED Orders 02/08/24 03:57 Chest [XR chest 2V] Stat 02/08/24 03:58 EKG-12 Lead Stat 02/08/24 04:00 Respiratory Panel (Film Array) Stat 02/08/24 04:04 CBC Auto Diff [Complete Blood Count AUTO DIFF] Stat CMP [Comprehensive Metabolic Panel] Stat Lactate (Lactic Acid) Stat Procalcitonin Stat Troponin & CK Cardiac Panel Stat 02/08/24 04:58 Blood Culture Stat Discontinued Medications Doxycycline Hyclate (Doxycycline Hyclate 100 Mg Tablet) 100 mg PO NOW ONE Stop: 02/08/24 04:59 Last Admin: 02/08/24 05:07 Dose: 100 mg Vital Signs Vital signs: Vital Signs - 8 hr 02/08/24 03:54 Temperature 99.5 F Pulse Rate 96 H Respiratory Rate 20 Blood Pressure 148/73 H Pulse Oximetry 96 Oxygen Delivery Method Room Air MDM - SOB/Dyspnea Lab Data 02/08/24 04:04 02/08/24 04:04 Labs: Lab Results 02/08/24 02/08/24 Range/Units 04:00 04:04 WBC 13.6 H (4.5-11.0) X10^3/uL RBC 3.55 L (4.5-5.9) X10^6/uL Hgb 11.7 L (13.5-17.5) g/dL Hct 34.1 L (41-53) % MCV 96.1 (80-100) fL MCH 32.9 (26-34) PG MCHC 34.3 (30-36) % RDW 12.9 (11.6-14.8) % Plt Count 245 (150-400) X10^3/uL Neut % (Auto) 83.8 H (50-75) % Lymph % (Auto) 10.1 L (25-40) % [place] % (Auto) 5.5 (3-14) % Eos % (Auto) 0.1 L (2-4) % Baso % (Auto) 0.5 (0-2) % Neut # (Auto) 22112 H (0343-5864) /uL Lymph # (Auto) 1400 (7689-6504) /uL [place] # (Auto) 800 (0-900) /uL Eos # (Auto) 0 (0-450) /uL Baso # (Auto) 100 (0-100) /uL Sodium 133 L (137-145) mmol/L Potassium 3.7 (3.4-5.1) mmol/L Chloride 104 (98-107) mmol/L Carbon Dioxide 22 (22-32) mmol/L BUN 29 H (9-20) mg/dL Creatinine 1.51 H (0.66-1.25) mg/dL Estimated GFR 54 L (>60) mL/min BUN/Creatinine Ratio 19.2 (6-22) Glucose 120 H (70-100) mg/dL Lactate 0.9 (0.7-2.1) mmol/L Calcium 8.9 (8.4-10.2) mg/dL Total Bilirubin 1.2 (0.2-1.3) mg/dL AST 66 H (17-59) IU/L ALT 46 (<50) IU/L Alkaline Phosphatase 80 (38-126) U/L Total Creatine Kinase 425 H (55-170) U/L Troponin I < 0.012 (0.01-0.034) ng/mL Total Protein 8.6 H (6.3-8.2) g/dL Albumin 4.3 (3.5-5.0) g/dL Globulin 4.3 H (1.7-4.1) g/dL Albumin/Globulin Ratio 1.0 (1.0-2.8) Procalcitonin 2.94 H (<0.5) ng/mL Chlamy pneumoniae PCR Not detected (Not Detect) Adenovirus (PCR) Not detected (Not Detect) B. pertussis DNA (PCR) Not detected (Not Detect) B.parapertussis DNA PCR Not detected (Not Detecte) Coronavirus OC43 (PCR) Not detected (Not Detect) Coronavirus HKU1 (PCR) Not detected (Not Detect) Coronavirus 229E (PCR) Not detected (Not Detect) SARS-CoV-2 (PCR) Not detected (Not Detecte) Coronavirus NL63 (PCR) Not detected (Not Detect) Human Metapneumovir PCR Not detected (Not Detect) Influenza Type A (PCR) Not detected (Not Detect) Influenza Type B (PCR) Not detected (Not Detect) M. pneumoniae (PCR) Not detected (Not Detect) Parainfluenza 1 (PCR) Not detected (Not Detect) Parainfluenza 2 (PCR) Not detected (Not Detect) Parainfluenza 3 (PCR) Not detected (Not Detect) Parainfluenza 4 (PCR) Detected H (Not Detect) RSV (PCR) Not detected (Not Detect) Entero/Rhino (PCR) Not detected (Not Detect) Imaging Data Chest x-ray: Radiologist's Impression: Preliminary review: No focal consolidation ECG Data Attestation: I personally reviewed and interpreted this ECG as follows: Interpretation: Normal sinus rhythm at 85 beats per minute. Normal IA. No ST T wave changes MDM Narrative Medical decision making narrative: Ill-appearing but nontoxic patient presenting for evaluation of possible pneumonia. Has had 5 days of progressive symptoms. Patient was able to speak in complete sentences without dyspnea, saturating well on room air. Based on hx and presentation labs, CXR will be obtained. Laboratory work shows WBC count 13.6, hemoglobin 11.7, platelet count 245, sodium 133, potassium 3.7, creatinine 1.51 (similar to 06/2023), troponin undetectable, procalcitonin 2.94. Chest x-ray shows no focal consolidations. Respiratory panel positive for parainfluenza 4. Based on the elevated inflammatory markers such as protocol and white blood cell count as well as duration of symptoms with fever it would not be a bad idea to treat patient empirically with short course doxycycline. Patient does not wear glasses or contacts and so erythromycin ointment will be prescribed for conjunctivitis. Patient counseled on all labs and imaging findings, he was counseled on signs and symptoms to look out for to return to the emergency department. Discharge Plan Departure Patient Disposition: Home Clinical Impression: Infection due to parainfluenza virus 4, Conjunctivitis Instructions: DI for Cough -- Adult Activity Restrictions/Additional Instructions: Your blood work today showed mildly elevated white blood cell count and mild elevation in inflammatory markers. Your kidney function appears to be stable from when you were last here in June, however you may be in the very initial stages of kidney decline. Your chest x-ray did not show any obvious signs of bacterial pneumonia, however because of the elevated inflammatory markers I believe it would be prudent to cover you for bacterial infection to make sure that you do not have a developing pneumonia. Take Tylenol as needed for fever. Finish all antibiotics as prescribed even if you feel improved. Use the antibiotic ointment for your eyes. Any time you touch around your face wash your hands with soap and water to prevent the spread of infection Prescriptions: New doxycycline hyclate 100 mg capsule 100 mg PO BID Qty: 10 0RF erythromycin 5 mg/gram (0.5 %) ointment 1 cm EYE-BOTH QID 7 Days Qty: 3.5 0RF No Action lorazepam [Ativan] 0.5 MG tablet 1 - 3 tab PO Q8HP PRNQty: 60 0RF lidocaine-prilocaine 2.5 %/2.5 % cream 1 anitra Topical PRN PRNQty: 30 1RF ondansetron 8 MG tablet,disintegrating 8 mg Sublingual Q6HP PRNQty: 30 2RF pyridoxine (vitamin B6) 100 MG tablet 300 mg PO QDAY Qty: 0 carole (Zingiber officinalis) 550 MG capsule 550 mg PO BID Qty: 0 lactulose 10 GM/15 ML solution 10 gm PO TIDP PRNQty: 360 0RF ibuprofen [IBU] 400 MG tablet 400 mg PO 2XW Qty: 0 [TART MANE EXTRACT] capsule PO Q DAY Qty: 0 ibuprofen 800 MG tablet 800 mg PO TIDP PRNQty: 120 3RF allopurinol 100 MG tablet 100 mg PO BID Qty: 120 2RF amoxicillin-pot clavulanate 875-125 mg tablet 1 tab PO Q12H Qty: 10 0RF doxycycline hyclate 100 mg tablet 100 mg PO BID Qty: 10 0RF tramadol 50 mg tablet 50 mg PO Q8H PRN (Reason: pain) Qty: 10 0RF prednisone 50 MG tablet 100 mg PO QAM Patient Comments: 100 mg qday for 5 days first week of RCHOP cycle alprazolam [Xanax] 0.5 MG tablet 0.5 mg PO QDAYP PRN (Reason: Anxiety) sennosides-docusate sodium [Senna with Docusate Sodium] 8.6 MG/50 MG tablet 1 - 2 tab PO BIDP PRN (Reason: Insomnia) Referrals: Lisandra Majano DO [Primary Care Provider] - Stand Alone Forms: Patient Portal/API/Survey, Work Release Note
--- NOTE | 2024-02-08 04:07 | PC.NURSE ---
Pt taken to imaging via wheel chair with tech
--- NOTE | 2024-02-08 04:14 | EKG_ITS ---
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
[2024-02-08 04:19] LABS: Add Manual Diff / Slide Review NO; Basophils Absolute Auto 100 /uL (0-100); Basophils Percent Auto 0.5 % (0-2); Eosinophils Absolute Auto 0 /uL (0-450); Eosinophils Percent Auto 0.1 % (2-4); Hematocrit 34.1 % (41-53); Hemoglobin 11.7 g/dL (13.5-17.5); Lymphocytes Absolute Auto 1400 /uL (1100-4500); Lymphocytes Percent Auto 10.1 % (25-40); Mean Corpuscular HGB Conc 34.3 % (30-36); Mean Corpuscular Hemoglobin 32.9 PG (26-34); Mean Corpuscular Volume 96.1 fL (80-100); Monocytes Absolute Auto 800 /uL (0-900); Monocytes Percent Auto 5.5 % (3-14); Neutrophils Absolute Auto 11400 /uL (1500-7000); Neutrophils Percent Auto 83.8 % (50-75); Platelet Count 245 X10^3/uL (150-400); Red Blood Cell Count 3.55 X10^6/uL (4.5-5.9); Red Cell Distribution Width 12.9 % (11.6-14.8); White Blood Cell Count 13.6 X10^3/uL (4.5-11.0)
[2024-02-08 04:24] LABS: Alanine Aminotransferase 46 IU/L (<50); Albumin 4.3 g/dL (3.5-5.0); BUN Creatinine Ratio 19.2 (6-22); Bilirubin Total 1.2 mg/dL (0.2-1.3); Blood Urea Nitrogen 29 mg/dL (9-20); Calcium 8.9 mg/dL (8.4-10.2); Carbon Dioxide 22 mmol/L (22-32); Chloride 104 mmol/L (98-107); Creatine Kinase 425 U/L (55-170); Estimated Glomerular Filt Rate 54 mL/min (>60); Globulin 4.3 g/dL (1.7-4.1); Glucose 120 mg/dL (70-100); Sodium 133 mmol/L (137-145); Total Protein 8.6 g/dL (6.3-8.2)
[2024-02-08 04:25] LABS: Aspartate Aminotransferase 66 IU/L (17-59); HEMOLYSIS 96 (0-50); Lactate (Lactic Acid) 0.9 mmol/L (0.7-2.1); Potassium 3.7 mmol/L (3.4-5.1)
[2024-02-08 04:26] LABS: Alkaline Phosphatase 80 U/L (38-126)
[2024-02-08 04:36] LABS: Troponin I < 0.012 ng/mL (0.01-0.034)
[2024-02-08 04:41] LABS: Procalcitonin 2.94 ng/mL (<0.5)
[2024-02-08 04:51] LABS: Adenovirus Not Detected (Not Detect); B. parapertussis Not Detected (Not Detecte); Bordetella pertussis Not Detected (Not Detect); Chlamydophila pneumoniae Not Detected (Not Detect); Coronavirus 229E Not Detected (Not Detect); Coronavirus HKU1 Not Detected (Not Detect); Coronavirus NL 63 Not Detected (Not Detect); Coronavirus OC43 Not Detected (Not Detect); Human Metapneumovirus Not Detected (Not Detect); Human Rhinovirus/Enterovirus Not Detected (Not Detect); Influenza A Not Detected (Not Detect); Influenza B Not Detected (Not Detect); Mycoplasma pneumoniae Not Detected (Not Detect); Parainfluenza Virus 1 Not Detected (Not Detect); Parainfluenza Virus 2 Not Detected (Not Detect); Parainfluenza Virus 3 Not Detected (Not Detect); Parainfluenza Virus 4 Detected (Not Detect); Respiratory Syncytial Virus Not Detected (Not Detect); SARS- CoV-2 Not Detected (Not Detecte)
[2024-02-08] MEDS: DOXYCYCLINE HYCLATE 100 MG TABLET PO (05:07)
== END 2024-02-08 05:21 | disposition home or self-care (01) ==
PROVIDERS: Emergency Provider Emergency Medicine; Family Provider Family Medicine; PCP Family Medicine
DX: B34.8 Other viral infections of unspecified site (principal); H10.9 Unspecified conjunctivitis; R07.89 Other chest pain; R50.9 Fever, unspecified; R05.9 Cough, unspecified
CPT/HCPCS: 36415; 71046; 80053; 82550; 83605; 84145; 84484; 85025; 87040; 87633; 93005; 99283; 99284

== ENCOUNTER 2024-07-12 11:50 | Emergency (ER) | payer OTHER, SELFPAY ==
[2024-07-12 12:05] VITALS: BP 129/72; PULSE 102; RESP 18; TEMP 38; O2SAT 99; BMI 25.4
[2024-07-12 13:05] LABS: Influenza A - CEPHEID Flu A NEGATIVE (NEGATIVE); Influenza B - CEPHEID Flu B NEGATIVE (NEGATIVE); Respiratory Syncytial Virus Negative (Negative)
[2024-07-12 13:07] LABS: COVID-19 CEPHEID 4-PLEX PCR Negative (Negative)
--- NOTE | 2024-07-12 14:03 | DI.RAD.S_ITS ---
PROCEDURE: XR CHEST 2V INDICATIONS: concern pna fever cough sob TECHNIQUE: 2 views of the chest were acquired. COMPARISON: [facility], CR, XR CHEST 2V, 02/08/2024, 4:00. FINDINGS: Surgical changes and devices: Right sided port-a-cath in good position Lungs and pleura: Lungs are clear. No pleural effusions or pneumothorax. Mediastinum: Mediastinal contours are normal. Heart size is normal. Bones and chest wall: No suspicious bony abnormalities. Soft tissues appear unremarkable. IMPRESSION: No acute cardiopulmonary abnormality is seen. Approved by: Lonny Tinoco M.D. on 07/12/2024 at 14:48
--- NOTE | 2024-07-12 14:53 | ED_ITS ---
HPI - URI/Sore Throat <Desirae Wood PA-C - Last Filed: 07/12/24 19:01> General Chief Complaint: Upper Respiratory Symptoms Stated Complaint: fever, chills, congest cough, rt lung pain Time Seen by Provider: 07/12/24 14:03 Source: patient Mode of arrival: Ambulatory History of Present Illness HPI Narrative: Mr. Gracia is a very pleasant 54-year-old gentleman with a past medical history of non-Hodgkin's lymphoma with stem cell transplant in 2019 reported to be in remission, HLD, who presents to the emergency department for upper respiratory infection symptoms x1 week. 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 States that last Saturday he started developing a wet cough, chest congestion, diarrhea, chills, pain in the right lower lung with deep breath. These symptoms have progressively gotten worse and he did not measure a temperature at home but today he was febrile in the emergency department. He is concerned for pneumonia which he has had in the past. Currently his only prescription medication is for cholesterol. He has been feeling extremely fatigued for the last week. States that he is pain in his right flank/lung area with a deep breath. No substernal chest pain. No lower leg swelling, abdominal pain, nausea, vomiting, constipation, dysuria, hematuria. He drove himself to the emergency department. Related Data Home Medications Medication Instructions Recorded Confirmed carole (Zingiber officinalis) 550 550 mg PO BID ##0 05/10/17 08/21/17 mg capsule pyridoxine (vitamin B6) 100 mg 300 mg PO QDAY ##0 05/10/17 08/21/17 tablet [TART MANE EXTRACT] PO Q DAY ##0 05/28/17 ibuprofen 400 mg tablet (IBU) 400 mg PO 2XW ##0 05/28/17 08/21/17 alprazolam 0.5 mg tablet (Xanax) 0.5 mg PO QDAYP PRN Anxiety 07/31/17 08/21/17 prednisone 50 mg tablet 100 mg PO QAM 07/31/17 08/21/17 sennosides 8.6 mg-docusate sodium 1 - 2 tab PO BIDP PRN Insomnia 08/21/17 08/21/17 50 mg tablet (Senna with Docusate Sodium) Previous Rx's Medication Instructions Recorded lorazepam 0.5 mg tablet (Ativan) 1 - 3 tab PO Q8HP PRN #60 tabs 04/30/17 lidocaine-prilocaine 2.5 %-2.5 % 1 anitra topical PRN PRN ##30 05/01/17 topical cream ondansetron 8 mg disintegrating 8 mg sublingual Q6HP PRN #30 tabs 05/03/17 tablet lactulose 10 gram/15 mL oral 10 gm PO TIDP PRN #360 mL 05/10/17 solution allopurinol 100 mg tablet 100 mg PO BID #120 tabs 06/18/17 ibuprofen 800 mg tablet 800 mg PO TIDP PRN #120 tabs 06/18/17 amoxicillin 875 mg-potassium 1 tab PO Q12H #10 tabs 07/01/23 clavulanate 125 mg tablet doxycycline hyclate 100 mg tablet 100 mg PO BID #10 tabs 07/01/23 tramadol 50 mg tablet 50 mg PO Q8H PRN pain #10 tabs 07/01/23 doxycycline hyclate 100 mg capsule 100 mg PO BID #10 caps 02/08/24 amoxicillin 875 mg-potassium 1 tab PO Q12H 7 days #14 tabs 07/12/24 clavulanate 125 mg tablet doxycycline hyclate 100 mg tablet 100 mg PO BID 7 days #14 tabs 07/12/24 Allergies Allergy/AdvReac Type Severity Reaction Status Date / Time No Known Drug Allergies Allergy Verified 07/29/17 13:17 Review of Systems <Desirae Wood PA-C - Last Filed: 07/12/24 19:01> Review of Systems ROS Unobtainable: All systems reviewed & are unremarkable except as noted in HPI and below Patient History <Desirae Wood PA-C - Last Filed: 07/12/24 19:01> Social History Smoking Status: Never smoker Smoking Status: Never smoker Exam <Desirae Wood PA-C - Last Filed: 07/12/24 19:01> Narrative Exam Narrative: GENERAL: 54 year old patient appears stated age. Well-developed patient, in no acute distress. HEAD: Atraumatic. Normocephalic. EYES: Extraocular motions intact. No scleral icterus. No injection or drainage. ENT: Nose without bleeding, purulent drainage. Throat with posterior oropharyngeal erythema, NO tonsillar hypertrophy or exudate. Airway patent. NECK: Trachea midline. Cervical ROM intact. CARDIOVASCULAR: Increased rate and regular rhythm. RESPIRATORY: ?Nonlabored respirations. ?Speaking in clear, full sentences. ?Somewhat decreased breath sounds in the right lower lobe however no wheezes rales or rhonchi throughout. EXTREMITIES: No edema or joint tenderness. NEURO: AOx3. ?Clear speech. ?Moves all 4 extremities appropriately. SKIN: No rash or erythema of visible areas Initial Vital Signs Initial Vital Signs: Vital Signs Temperature 100.4 F H 07/12/24 12:05 Pulse Rate 102 H 07/12/24 12:05 Respiratory Rate 18 07/12/24 12:05 Blood Pressure 129/72 07/12/24 12:05 Pulse Oximetry 99 07/12/24 12:05 Oxygen Delivery Method Room Air 07/12/24 12:05 <Estela Laboy DO - Last Filed: 07/17/24 10:11> Initial Vital Signs Initial Vital Signs: Vital Signs Temperature 100.4 F H 07/12/24 12:05 Pulse Rate 102 H 07/12/24 12:05 Respiratory Rate 18 07/12/24 12:05 Blood Pressure 129/72 07/12/24 12:05 Pulse Oximetry 99 07/12/24 12:05 Oxygen Delivery Method Room Air 07/12/24 12:05 Course <Desirae Wood PA-C - Last Filed: 07/12/24 19:01> Orders Ordered: Discontinued Medications Acetaminophen (Acetaminophen 325 Mg Tablet) 975 mg PO NOW ONE Stop: 07/12/24 15:01 Last Admin: 07/12/24 15:31 Dose: 975 mg Documented By: WADE Doxycycline Hyclate (Doxycycline Hyclate 100 Mg Tablet) 100 mg PO NOW ONE Stop: 07/12/24 17:58 Last Admin: 07/12/24 18:04 Dose: 100 mg Documented By: LUCINDA Sodium Chloride (Normal Saline 0.9%) 1,000 mls @ 1,000 mls/hr IV BOLUS ONE Stop: 07/12/24 15:59 Last Infusion: 07/12/24 16:10 Dose: Infused Documented By: Admin: 07/12/24 15:32 Dose: 1,000 mls/hr Documented By: WADE Ceftriaxone Sodium 1,000 mg/ (Sodium Chloride) 100 mls @ 200 mls/hr IV NOW ONE Stop: 07/12/24 15:36 Last Infusion: 07/12/24 16:47 Dose: Infused Documented By: Admin: 07/12/24 16:08 Dose: 200 mls/hr Documented By: WADE Sodium Chloride (Normal Saline 0.9%) 1,000 mls @ 1,000 mls/hr IV BOLUS ONE Stop: 07/12/24 18:56 Last Infusion: 07/12/24 18:59 Dose: Infused Documented By: Admin: 07/12/24 18:04 Dose: 1,000 mls/hr Documented By: LUCINDA Ketorolac Tromethamine (Ketorolac 30 Mg/Ml Vial) 15 mg IV NOW ONE Stop: 07/12/24 15:01 Last Admin: 07/12/24 15:31 Dose: 15 mg Documented By: WADE Ondansetron HCl (Ondansetron 4 Mg/2 Ml Inj) 4 mg IV NOW ONE Stop: 07/12/24 15:01 Last Admin: 07/12/24 16:06 Dose: Not Given Documented By: WADE Vital Signs Vital signs: Vital Signs - 8 hr 07/12/24 12:05 07/12/24 15:31 07/12/24 15:31 Temperature 100.4 F H 102.1 F H 102.1 F H Pulse Rate 102 H Respiratory Rate 18 Blood Pressure 129/72 Pulse Oximetry 99 Oxygen Delivery Method Room Air 07/12/24 15:32 07/12/24 16:42 Temperature 102.1 F H 99.3 F Pulse Rate 97 H 82 Respiratory Rate 32 H 16 Blood Pressure 122/72 114/62 Pulse Oximetry 94 95 Oxygen Delivery Method Room Air Room Air <Estela Laboy DO - Last Filed: 07/17/24 10:11> Orders Ordered: Discontinued Medications Acetaminophen (Acetaminophen 325 Mg Tablet) 975 mg PO NOW ONE Stop: 07/12/24 15:01 Last Admin: 07/12/24 15:31 Dose: 975 mg Documented By: WADE Doxycycline Hyclate (Doxycycline Hyclate 100 Mg Tablet) 100 mg PO NOW ONE Stop: 07/12/24 17:58 Last Admin: 07/12/24 18:04 Dose: 100 mg Documented By: LUCINDA Sodium Chloride (Normal Saline 0.9%) 1,000 mls @ 1,000 mls/hr IV BOLUS ONE Stop: 07/12/24 15:59 Last Infusion: 07/12/24 16:10 Dose: Infused Documented By: Admin: 07/12/24 15:32 Dose: 1,000 mls/hr Documented By: WADE Ceftriaxone Sodium 1,000 mg/ (Sodium Chloride) 100 mls @ 200 mls/hr IV NOW ONE Stop: 07/12/24 15:36 Last Infusion: 07/12/24 16:47 Dose: Infused Documented By: Admin: 07/12/24 16:08 Dose: 200 mls/hr Documented By: WADE Sodium Chloride (Normal Saline 0.9%) 1,000 mls @ 1,000 mls/hr IV BOLUS ONE Stop: 07/12/24 18:56 Last Infusion: 07/12/24 18:59 Dose: Infused Documented By: Admin: 07/12/24 18:04 Dose: 1,000 mls/hr Documented By: LUCINDA Ketorolac Tromethamine (Ketorolac 30 Mg/Ml Vial) 15 mg IV NOW ONE Stop: 07/12/24 15:01 Last Admin: 07/12/24 15:31 Dose: 15 mg Documented By: WADE Ondansetron HCl (Ondansetron 4 Mg/2 Ml Inj) 4 mg IV NOW ONE Stop: 07/12/24 15:01 Last Admin: 07/12/24 16:06 Dose: Not Given Documented By: WADE Vital Signs Vital signs: Vital Signs - 8 hr 07/12/24 12:05 07/12/24 15:31 07/12/24 15:31 Temperature 100.4 F H 102.1 F H 102.1 F H Pulse Rate 102 H Respiratory Rate 18 Blood Pressure 129/72 Pulse Oximetry 99 Oxygen Delivery Method Room Air 07/12/24 15:32 07/12/24 16:42 Temperature 102.1 F H 99.3 F Pulse Rate 97 H 82 Respiratory Rate 32 H 16 Blood Pressure 122/72 114/62 Pulse Oximetry 94 95 Oxygen Delivery Method Room Air Room Air MDM - URI/Sore Throat <Desirae Wood PA-C - Last Filed: 07/12/24 19:01> Medical Records Attestation: I reviewed the patient's medical records. Lab Data 07/12/24 15:16 07/12/24 15:16 Labs: Lab Results 07/12/24 07/12/24 07/12/24 Range/Units 12:13 12:13 12:13 WBC (4.5-11.0) X10^3/uL RBC (4.5-5.9) X10^6/uL Hgb (13.5-17.5) g/dL Hct (41-53) % MCV (80-100) fL MCH (26-34) PG MCHC (30-36) % RDW (11.6-14.8) % Plt Count (150-400) X10^3/uL Neut % (Auto) (50-75) % Lymph % (Auto) (25-40) % [place] % (Auto) (3-14) % Eos % (Auto) (2-4) % Baso % (Auto) (0-2) % Neut # (Auto) (5061-5462) /uL Lymph # (Auto) (0618-1580) /uL [place] # (Auto) (0-900) /uL Eos # (Auto) (0-450) /uL Baso # (Auto) (0-100) /uL PT (9.4-12.5) SECONDS INR (0.9-1.3) APTT (25.1-36.5) SECONDS D-Dimer (<500) ng/ml Sodium (137-145) mmol/L Potassium (3.4-5.1) mmol/L Chloride (98-107) mmol/L Carbon Dioxide (22-32) mmol/L BUN (9-20) mg/dL Creatinine (0.66-1.25) mg/dL Estimated GFR (>60) mL/min BUN/Creatinine Ratio (6-22) Glucose (70-99) mg/dL Lactate (0.7-2.1) mmol/L Calcium (8.4-10.2) mg/dL Total Bilirubin (0.2-1.3) mg/dL AST (17-59) IU/L ALT (<50) IU/L Alkaline Phosphatase (38-126) U/L Total Creatine Kinase (55-170) U/L Troponin I (0.01-0.034) ng/mL NT-Pro-B Natriuret Pep (<125) pg/mL Total Protein (6.3-8.2) g/dL Albumin (3.5-5.0) g/dL Globulin (1.7-4.1) g/dL Albumin/Globulin Ratio (1.0-2.8) Lipase (23-300) U/L Procalcitonin (<0.5) ng/mL Chlamy pneumoniae PCR Not detected (Not Detect) Adenovirus (PCR) Not detected (Not Detect) B. pertussis DNA (PCR) Not detected (Not Detect) B.parapertussis DNA PCR Not detected (Not Detecte) Coronavirus OC43 (PCR) Not detected (Not Detect) Coronavirus HKU1 (PCR) Not detected (Not Detect) Coronavirus 229E (PCR) Not detected (Not Detect) SARS-CoV-2 (PCR) Negative Not detected (Negative) Coronavirus NL63 (PCR) Not detected (Not Detect) Human Metapneumovir PCR Not detected (Not Detect) Influenza A (RT-PCR) Flu a negative (NEGATIVE) Influenza Type A (PCR) Not detected (Not Detect) Influenza B (RT-PCR) Flu b negative (NEGATIVE) Influenza Type B (PCR) Not detected (Not Detect) M. pneumoniae (PCR) Not detected (Not Detect) Parainfluenza 1 (PCR) Not detected (Not Detect) Parainfluenza 2 (PCR) Not detected (Not Detect) Parainfluenza 3 (PCR) Not detected (Not Detect) Parainfluenza 4 (PCR) Not detected (Not Detect) RSV (PCR) Negative Not detected (Negative) Entero/Rhino (PCR) Detected H (Not Detect) 07/12/24 07/12/24 Range/Units 15:16 15:57 WBC 17.8 H (4.5-11.0) X10^3/uL RBC 3.64 L (4.5-5.9) X10^6/uL Hgb 11.9 L (13.5-17.5) g/dL Hct 34.6 L (41-53) % MCV 95.2 (80-100) fL MCH 32.6 (26-34) PG MCHC 34.2 (30-36) % RDW 13.4 (11.6-14.8) % Plt Count 219 (150-400) X10^3/uL Neut % (Auto) 89.4 H (50-75) % Lymph % (Auto) 5.1 L (25-40) % [place] % (Auto) 5.2 (3-14) % Eos % (Auto) 0.0 L (2-4) % Baso % (Auto) 0.3 (0-2) % Neut # (Auto) 20401 H (6864-6364) /uL Lymph # (Auto) 900 L (9053-9977) /uL [place] # (Auto) 900 (0-900) /uL Eos # (Auto) 0 (0-450) /uL Baso # (Auto) 0 (0-100) /uL PT 14.4 H (9.4-12.5) SECONDS INR 1.3 (0.9-1.3) APTT 31 (25.1-36.5) SECONDS D-Dimer 788 H (<500) ng/ml Sodium 135 L (137-145) mmol/L Potassium 3.8 (3.4-5.1) mmol/L Chloride 99 (98-107) mmol/L Carbon Dioxide 22 (22-32) mmol/L BUN 24 H (9-20) mg/dL Creatinine 1.56 H (0.66-1.25) mg/dL Estimated GFR 52 L (>60) mL/min BUN/Creatinine Ratio 15.4 (6-22) Glucose 119 H (70-99) mg/dL Lactate 1.1 (0.7-2.1) mmol/L Calcium 9.5 (8.4-10.2) mg/dL Total Bilirubin 1.5 H (0.2-1.3) mg/dL AST 31 (17-59) IU/L ALT 25 (<50) IU/L Alkaline Phosphatase 89 (38-126) U/L Total Creatine Kinase 96 (55-170) U/L Troponin I < 0.012 (0.01-0.034) ng/mL NT-Pro-B Natriuret Pep 121 (<125) pg/mL Total Protein 8.3 H (6.3-8.2) g/dL Albumin 4.6 (3.5-5.0) g/dL Globulin 3.7 (1.7-4.1) g/dL Albumin/Globulin Ratio 1.2 (1.0-2.8) Lipase 40 (23-300) U/L Procalcitonin 7.31 H (<0.5) ng/mL Chlamy pneumoniae PCR (Not Detect) Adenovirus (PCR) (Not Detect) B. pertussis DNA (PCR) (Not Detect) B.parapertussis DNA PCR (Not Detecte) Coronavirus OC43 (PCR) (Not Detect) Coronavirus HKU1 (PCR) (Not Detect) Coronavirus 229E (PCR) (Not Detect) SARS-CoV-2 (PCR) (Negative) Coronavirus NL63 (PCR) (Not Detect) Human Metapneumovir PCR (Not Detect) Influenza A (RT-PCR) (NEGATIVE) Influenza Type A (PCR) (Not Detect) Influenza B (RT-PCR) (NEGATIVE) Influenza Type B (PCR) (Not Detect) M. pneumoniae (PCR) (Not Detect) Parainfluenza 1 (PCR) (Not Detect) Parainfluenza 2 (PCR) (Not Detect) Parainfluenza 3 (PCR) (Not Detect) Parainfluenza 4 (PCR) (Not Detect) RSV (PCR) (Negative) Entero/Rhino (PCR) (Not Detect) Urine Dip Bedside Urine Glucose Negative Bedside Urine Bilirubin - Negative Bedside Urine Ketone +/- 5 Urine Specific [place] 1.005 Bedside Urine Occult Blood - Negative Bedside Urine pH 6.0 Bedside Urine Protein +/- 15 Bedside Urine Urobilinogen - Negative Bedside Urine Nitrite - Negative Bedside Urine Leukocytes - Negative Esterase Imaging Data Chest x-ray: Radiologist's Impression: PROCEDURE: XR CHEST 2V INDICATIONS: concern pna fever cough sob TECHNIQUE: 2 views of the chest were acquired. COMPARISON: [facility], , XR CHEST 2V, 02/08/2024, 4:00. FINDINGS: Surgical changes and devices: Right sided port-a-cath in good position Lungs and pleura: Lungs are clear. No pleural effusions or pneumothorax. Mediastinum: Mediastinal contours are normal. Heart size is normal. Bones and chest wall: No suspicious bony abnormalities. Soft tissues appear unremarkable. IMPRESSION: No acute cardiopulmonary abnormality is seen. Chest CTA: Radiologist's Impression: PROCEDURE: CT ANGIO CHEST PE PROTOCOL INDICATIONS: sepsis. cough. sob. r back/flank pain. TECHNIQUE: After the administration of intravenous contrast, 2 mm thick sections acquired from the pulmonary apices to the posterior costophrenic angles. 3-dimensional maximum intensity projection (MIP) coronal and sagittal reformats were then acquired through the thorax. For radiation dose reduction, the following was used: automated exposure control, adjustment of mA and/or kV according to patient size. COMPARISON: None. FINDINGS: Image quality: Diagnostic. Pulmonary arteries: Pulmonary arteries are normal in size, and demonstrate no intraluminal filling defects to suggest central pulmonary embolism. Lower Neck: No enlarged lymph nodes. Thyroid: No thyroid nodules which require sonographic follow up, per consensus guidelines. Axillae: No enlarged lymph nodes. Chest Wall: Unremarkable. Bones: Unremarkable. Lungs and Pleura: Right lower lobe pulmonary infiltrate associated with right hilar adenopathy Heart: Heart size is normal. No pericardial effusion. Thoracic Vessels: No aortic aneurysm. Mediastinum and Meera: No enlarged lymph nodes. Esophagus: No wall thickening. No hiatal hernia. Upper Abdomen: Visualized upper abdomen solid organs and bowel loops appear normal. IMPRESSION: No pulmonary embolus. Right lower lobe pulmonary infiltrate with consolidation associated with right hilar adenopathy consistent with pneumonia. Follow-up to resolution to exclude underlying mass lesion CT scan - abdomen/pelvis: Radiologist's Impression: PROCEDURE: CT ABDOMEN PELVIS W CON INDICATIONS: sepsis. cough. sob. r back/flank pain. diarrhea TECHNIQUE: After the administration of intravenous contrast, axial sections acquired from the lung bases to the pubic symphysis. Coronal and sagittal reformats were performed. For radiation dose reduction, the following was used: automated exposure control, adjustment of mA and/or kV according to patient size. COMPARISON: [facility], CT, ABDOMEN/PELVIS WITH CONTRAST, 04/13/2017, 9:41. FINDINGS: Image quality: Diagnostic. Right lower lobe pulmonary infiltrate, partially imaged with consolidation ABDOMEN: Liver: No solid mass. Gallbladder: No radiopaque gallstones or wall thickening. Biliary ducts: No biliary dilation. Pancreas: No ductal dilation. Spleen: Size is within normal limits. Adrenal Glands: No adrenal nodules. Kidneys and Ureters: No hydronephrosis. No solid mass. No complex renal cystic lesion which requires follow up. Stomach and Bowel: Normal colonic caliber, without significant wall thickening. Peritoneum: No abnormal intraperitoneal fluid. No free air. Ventral Wall: No significant ventral hernia. Abdominal Nodes: No retroperitoneal or mesenteric adenopathy by size criteria. Vessels: Aorta and inferior vena cava are normal in size. PELVIS: Pelvic Organs: Unremarkable. Bladder: No bladder wall thickening, accounting for underdistention. Pelvic Nodes: No enlarged lymph nodes. Miscellaneous: No inguinal hernias are seen. Bones: No aggressive osseous abnormality. IMPRESSION: Unremarkable CT abdomen pelvis without acute findings. No adenopathy. Right lower lobe pulmonary infiltrate. Please refer to the concurrent CT chest MDM Narrative Medical decision making narrative: 54-year-old gentleman with a past medical history of non-Hodgkin's lymphoma with stem cell transplant in 2019 reported to be in remission, HLD, who presents to the emergency department for upper respiratory infection symptoms x1 week. Differential diagnosis includes but is not limited to viral syndrome, pneumonia, bronchitis, malignancy, etc. On exam patient is in no acute distress, nontoxic appearing, heart rate and temperature are elevated in triage with a normal blood pressure oxygen saturation respiratory rate. Physical exam reveals posterior oropharyngeal erythema, intermittent coughing, and somewhat decreased breath sounds in the right lower lobe overall no wheezes or rales. Viral swab and chest x-ray obtained, we will add on CBC, CMP, lactate, treat with fluids Toradol and acetaminophen. WBC returns elevated 17.8, repeat vital signs prior to medications were worsened from triage, will proceed with full sepsis orderset and treat with 1 g IV Rocephin pending additional workup. Labs reveal elevated WBC count of 17.8 with left shift, decreased RBC count of 3.64. Sodium 135, BUN 24 and creatinine 1.56 which is slightly above baseline. Total bilirubin slightly elevated at 1.5. Normal LFTs. Negative troponin. Procalcitonin is elevated at 7.31, lactate is normal at 1.1. Viral swab positive for entero/rhinovirus. D-dimer elevated at 788. Chest XR negative. Point of care UA reveals no signs of infection, there is some protein and ketones. Due to positive D-dimer, we will proceed with CTA chest to rule out PE given right lower lobe pleuritic pain however due to negative chest x-ray but labs consistent with infectious process, we will also obtain a CT abdomen and pelvis given patient is having diarrhea in addition to his right back pain with a deep breath. Chest CTA reveals no pulmonary embolus. There is a right lower lobe pulmonary infiltrate with consolidation associated with right hilar adenopathy consistent with pneumonia. Patient's CT abdomen and pelvis reveals no acute abnormalities. Patient was treated with with a 2 L of IV fluids and oral doxycycline as well. Overall workup consistent right lower lobe pneumonia and patient has responded extremely well to ED treatment, all vital signs normalized, he feels much better. After shared decision-making with the patient, Dr. Laboy, patient's , we will send him home on oral antibiotics Augmentin and doxycycline b.i.d. x7 days. I did discuss very strict ED return precautions and I did also explain that blood cultures are pending and there is a possibility he will be called back if they are positive. Recommended supportive care, rest, hydration, Tylenol. Patient his were provided with printed copies of all of his lab work and all of his imaging findings and we discussed everything. He is agreeable to the plan, verbalized understanding of all information, questions answered, stable for discharge home. <Estela Laboy, DO - Last Filed: 07/17/24 10:11> Lab Data Labs: Lab Results 07/12/24 07/12/24 07/12/24 Range/Units 12:13 12:13 12:13 WBC (4.5-11.0) X10^3/uL RBC (4.5-5.9) X10^6/uL Hgb (13.5-17.5) g/dL Hct (41-53) % MCV (80-100) fL MCH (26-34) PG MCHC (30-36) % RDW (11.6-14.8) % Plt Count (150-400) X10^3/uL Neut % (Auto) (50-75) % Lymph % (Auto) (25-40) % [place] % (Auto) (3-14) % Eos % (Auto) (2-4) % Baso % (Auto) (0-2) % Neut # (Auto) (8388-6042) /uL Lymph # (Auto) (1227-1220) /uL [place] # (Auto) (0-900) /uL Eos # (Auto) (0-450) /uL Baso # (Auto) (0-100) /uL PT (9.4-12.5) SECONDS INR (0.9-1.3) APTT (25.1-36.5) SECONDS D-Dimer (<500) ng/ml Sodium (137-145) mmol/L Potassium (3.4-5.1) mmol/L Chloride (98-107) mmol/L Carbon Dioxide (22-32) mmol/L BUN (9-20) mg/dL Creatinine (0.66-1.25) mg/dL Estimated GFR (>60) mL/min BUN/Creatinine Ratio (6-22) Glucose (70-99) mg/dL Lactate (0.7-2.1) mmol/L Calcium (8.4-10.2) mg/dL Total Bilirubin (0.2-1.3) mg/dL AST (17-59) IU/L ALT (<50) IU/L Alkaline Phosphatase (38-126) U/L Total Creatine Kinase (55-170) U/L Troponin I (0.01-0.034) ng/mL NT-Pro-B Natriuret Pep (<125) pg/mL Total Protein (6.3-8.2) g/dL Albumin (3.5-5.0) g/dL Globulin (1.7-4.1) g/dL Albumin/Globulin Ratio (1.0-2.8) Lipase (23-300) U/L Procalcitonin (<0.5) ng/mL Chlamy pneumoniae PCR Not detected (Not Detect) Adenovirus (PCR) Not detected (Not Detect) B. pertussis DNA (PCR) Not detected (Not Detect) B.parapertussis DNA PCR Not detected (Not Detecte) Coronavirus OC43 (PCR) Not detected (Not Detect) Coronavirus HKU1 (PCR) Not detected (Not Detect) Coronavirus 229E (PCR) Not detected (Not Detect) SARS-CoV-2 (PCR) Negative Not detected (Negative) Coronavirus NL63 (PCR) Not detected (Not Detect) Human Metapneumovir PCR Not detected (Not Detect) Influenza A (RT-PCR) Flu a negative (NEGATIVE) Influenza Type A (PCR) Not detected (Not Detect) Influenza B (RT-PCR) Flu b negative (NEGATIVE) Influenza Type B (PCR) Not detected (Not Detect) M. pneumoniae (PCR) Not detected (Not Detect) Parainfluenza 1 (PCR) Not detected (Not Detect) Parainfluenza 2 (PCR) Not detected (Not Detect) Parainfluenza 3 (PCR) Not detected (Not Detect) Parainfluenza 4 (PCR) Not detected (Not Detect) RSV (PCR) Negative Not detected (Negative) Entero/Rhino (PCR) Detected H (Not Detect) 07/12/24 07/12/24 Range/Units 15:16 15:57 WBC 17.8 H (4.5-11.0) X10^3/uL RBC 3.64 L (4.5-5.9) X10^6/uL Hgb 11.9 L (13.5-17.5) g/dL Hct 34.6 L (41-53) % MCV 95.2 (80-100) fL MCH 32.6 (26-34) PG MCHC 34.2 (30-36) % RDW 13.4 (11.6-14.8) % Plt Count 219 (150-400) X10^3/uL Neut % (Auto) 89.4 H (50-75) % Lymph % (Auto) 5.1 L (25-40) % [place] % (Auto) 5.2 (3-14) % Eos % (Auto) 0.0 L (2-4) % Baso % (Auto) 0.3 (0-2) % Neut # (Auto) 09564 H (8175-6172) /uL Lymph # (Auto) 900 L (0517-5209) /uL [place] # (Auto) 900 (0-900) /uL Eos # (Auto) 0 (0-450) /uL Baso # (Auto) 0 (0-100) /uL PT 14.4 H (9.4-12.5) SECONDS INR 1.3 (0.9-1.3) APTT 31 (25.1-36.5) SECONDS D-Dimer 788 H (<500) ng/ml Sodium 135 L (137-145) mmol/L Potassium 3.8 (3.4-5.1) mmol/L Chloride 99 (98-107) mmol/L Carbon Dioxide 22 (22-32) mmol/L BUN 24 H (9-20) mg/dL Creatinine 1.56 H (0.66-1.25) mg/dL Estimated GFR 52 L (>60) mL/min BUN/Creatinine Ratio 15.4 (6-22) Glucose 119 H (70-99) mg/dL Lactate 1.1 (0.7-2.1) mmol/L Calcium 9.5 (8.4-10.2) mg/dL Total Bilirubin 1.5 H (0.2-1.3) mg/dL AST 31 (17-59) IU/L ALT 25 (<50) IU/L Alkaline Phosphatase 89 (38-126) U/L Total Creatine Kinase 96 (55-170) U/L Troponin I < 0.012 (0.01-0.034) ng/mL NT-Pro-B Natriuret Pep 121 (<125) pg/mL Total Protein 8.3 H (6.3-8.2) g/dL Albumin 4.6 (3.5-5.0) g/dL Globulin 3.7 (1.7-4.1) g/dL Albumin/Globulin Ratio 1.2 (1.0-2.8) Lipase 40 (23-300) U/L Procalcitonin 7.31 H (<0.5) ng/mL Chlamy pneumoniae PCR (Not Detect) Adenovirus (PCR) (Not Detect) B. pertussis DNA (PCR) (Not Detect) B.parapertussis DNA PCR (Not Detecte) Coronavirus OC43 (PCR) (Not Detect) Coronavirus HKU1 (PCR) (Not Detect) Coronavirus 229E (PCR) (Not Detect) SARS-CoV-2 (PCR) (Negative) Coronavirus NL63 (PCR) (Not Detect) Human Metapneumovir PCR (Not Detect) Influenza A (RT-PCR) (NEGATIVE) Influenza Type A (PCR) (Not Detect) Influenza B (RT-PCR) (NEGATIVE) Influenza Type B (PCR) (Not Detect) M. pneumoniae (PCR) (Not Detect) Parainfluenza 1 (PCR) (Not Detect) Parainfluenza 2 (PCR) (Not Detect) Parainfluenza 3 (PCR) (Not Detect) Parainfluenza 4 (PCR) (Not Detect) RSV (PCR) (Negative) Entero/Rhino (PCR) (Not Detect) Urine Dip Bedside Urine Glucose Negative Bedside Urine Bilirubin - Negative Bedside Urine Ketone +/- 5 Urine Specific [place] 1.005 Bedside Urine Occult Blood - Negative Bedside Urine pH 6.0 Bedside Urine Protein +/- 15 Bedside Urine Urobilinogen - Negative Bedside Urine Nitrite - Negative Bedside Urine Leukocytes - Negative Esterase Discharge Plan Departure Patient Disposition: Home Clinical Impression: Rhinovirus infection Right lower lobe pneumonia Qualifiers: Pneumonia type: due to unspecified organism Qualified Code(s): J18.9 - Pneumonia, unspecified organism Chronic kidney disease Qualifiers: Chronic kidney disease stage: stage 3 (moderate) Chronic kidney disease stage 3 subtype: stage 3a (GFR 45-59) Qualified Code(s): N18.31 - Chronic kidney disease, stage 3a Instructions: DI for Pneumonia -- Adult Activity Restrictions/Additional Instructions: Dear Mr. Gracia, Thank you for coming to the emergency department. Today your workup revealed right lower lobe pneumonia, and you tested positive for entero/rhinovirus. Today you were treated with a dose of oral and IV antibiotics. Tomorrow I would like you to start taking and complete the full 7 day course of 2 separate antibiotics to treat this lung infection. It is very important to follow up with your primary care doctor as you will need repeat imaging of the chest to document resolution of pneumonia/reactive lymph nodes. Please rest, hydrate, use acetaminophen/Tylenol if needed for pain. Today we did obtain blood cultures. If these come back positive, you will be called and informed. If your symptoms are not getting better, we will ask her to come back to the emergency department. If at any time you develop any new or worsening symptoms, return to the emergency department immediately. Please follow up with your primary care doctor within the next 2-3 days for ER follow-up. (If you do not have a PCP you can call [phone]. ?to schedule an appointment with an [facility] Primary Care Provider) IF YOU DEVELOP ANY NEW OR WORSENING SYMPTOMS, RETURN TO THE ER! Please read the attached instructions, they highlight more specific treatments and interventions for you at home. Thank you for letting me participate in your care, Desirae Wood PA-C Prescriptions: New amoxicillin-pot clavulanate 875-125 mg tablet 1 tab PO Q12H 7 Days Qty: 14 0RF doxycycline hyclate 100 mg tablet 100 mg PO BID 7 Days Qty: 14 0RF No Action lorazepam [Ativan] 0.5 MG tablet 1 - 3 tab PO Q8HP PRNQty: 60 0RF lidocaine-prilocaine 2.5 %/2.5 % cream 1 anitra Topical PRN PRNQty: 30 1RF ondansetron 8 MG tablet,disintegrating 8 mg Sublingual Q6HP PRNQty: 30 2RF pyridoxine (vitamin B6) 100 MG tablet 300 mg PO QDAY Qty: 0 carole (Zingiber officinalis) 550 MG capsule 550 mg PO BID Qty: 0 lactulose 10 GM/15 ML solution 10 gm PO TIDP PRNQty: 360 0RF ibuprofen [IBU] 400 MG tablet 400 mg PO 2XW Qty: 0 [TART MANE EXTRACT] capsule PO Q DAY Qty: 0 ibuprofen 800 MG tablet 800 mg PO TIDP PRNQty: 120 3RF allopurinol 100 MG tablet 100 mg PO BID Qty: 120 2RF amoxicillin-pot clavulanate 875-125 mg tablet 1 tab PO Q12H Qty: 10 0RF doxycycline hyclate 100 mg tablet 100 mg PO BID Qty: 10 0RF tramadol 50 mg tablet 50 mg PO Q8H PRN (Reason: pain) Qty: 10 0RF doxycycline hyclate 100 mg capsule 100 mg PO BID Qty: 10 0RF prednisone 50 MG tablet 100 mg PO QAM Patient Comments: 100 mg qday for 5 days first week of RCHOP cycle alprazolam [Xanax] 0.5 MG tablet 0.5 mg PO QDAYP PRN (Reason: Anxiety) sennosides-docusate sodium [Senna with Docusate Sodium] 8.6 MG/50 MG tablet 1 - 2 tab PO BIDP PRN (Reason: Insomnia) Referrals: Lisandra Majano DO [Primary Care Provider] - Stand Alone Forms: Patient Portal/API/Survey, Work Release Note ED Sign-out <Estela Laboy DO - Last Filed: 07/17/24 10:11> Cosign ED Attending Faina Attestation: I was immediately available in the department for consultation. Case was discussed with myself. Plan to obtain further imaging with the patient's history of non-Hodgkin's lymphoma. Agree with current plan of care
[2024-07-12 15:25] LABS: Add Manual Diff / Slide Review NO; Basophils Absolute Auto 0 /uL (0-100); Basophils Percent Auto 0.3 % (0-2); Eosinophils Absolute Auto 0 /uL (0-450); Hematocrit 34.6 % (41-53); Hemoglobin 11.9 g/dL (13.5-17.5); Lymphocytes Absolute Auto 900 /uL (1100-4500); Lymphocytes Percent Auto 5.1 % (25-40); Mean Corpuscular HGB Conc 34.2 % (30-36); Mean Corpuscular Hemoglobin 32.6 PG (26-34); Mean Corpuscular Volume 95.2 fL (80-100); Monocytes Absolute Auto 900 /uL (0-900); Monocytes Percent Auto 5.2 % (3-14); Neutrophils Absolute Auto 15900 /uL (1500-7000); Neutrophils Percent Auto 89.4 % (50-75); Platelet Count 219 X10^3/uL (150-400); Red Blood Cell Count 3.64 X10^6/uL (4.5-5.9); Red Cell Distribution Width 13.4 % (11.6-14.8); White Blood Cell Count 17.8 X10^3/uL (4.5-11.0)
[2024-07-12 15:31] VITALS: TEMP 38.9
[2024-07-12] MEDS: KETOROLAC 30 MG/ML VIAL 15 MG IV (15:31)
[2024-07-12] MEDS: ACETAMINOPHEN 325 MG TABLET 975 MG PO (15:31)
[2024-07-12 15:32] VITALS: BP 122/72; PULSE 97; RESP 32; TEMP 38.9; O2SAT 94
[2024-07-12] MEDS: SODIUM CHLORIDE 0.9% 1,000 ML 1000 ML IV ×2 (15:32→18:04)
[2024-07-12 15:36] LABS: Alanine Aminotransferase 25 IU/L (<50); Albumin 4.6 g/dL (3.5-5.0); Albumin Globulin Ratio 1.2 (1.0-2.8); Alkaline Phosphatase 89 U/L (38-126); Aspartate Aminotransferase 31 IU/L (17-59); BUN Creatinine Ratio 15.4 (6-22); Bilirubin Total 1.5 mg/dL (0.2-1.3); Blood Urea Nitrogen 24 mg/dL (9-20); Calcium 9.5 mg/dL (8.4-10.2); Carbon Dioxide 22 mmol/L (22-32); Chloride 99 mmol/L (98-107); Estimated Glomerular Filt Rate 52 mL/min (>60); Globulin 3.7 g/dL (1.7-4.1); Glucose 119 mg/dL (70-99); HEMOLYSIS < 15 (0-50); Potassium 3.8 mmol/L (3.4-5.1); Sodium 135 mmol/L (137-145); Total Protein 8.3 g/dL (6.3-8.2)
[2024-07-12 15:37] LABS: Lactate (Lactic Acid) 1.1 mmol/L (0.7-2.1)
--- NOTE | 2024-07-12 15:46 | PC.NURSE ---
Pt reports fatigue since last Saturday, SOB and fever since Saturday.
--- NOTE | 2024-07-12 15:50 | EKG_ITS ---
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
[2024-07-12 15:53] LABS: Procalcitonin 7.31 ng/mL (<0.5)
[2024-07-12] MEDS: cefTRIAXone 1,000 MG in SODIUM CHLORIDE 0.9% 100 ML 200 MG IV (16:08)
[2024-07-12 16:26] LABS: INR 1.3 (0.9-1.3); Prothrombin Time 14.4 SECONDS (9.4-12.5)
[2024-07-12 16:28] LABS: Creatine Kinase 96 U/L (55-170); D Dimer 788 ng/ml (<500)
[2024-07-12 16:29] LABS: PTT Partial Thromboplastin Tim 31 SECONDS (25.1-36.5)
[2024-07-12 16:39] LABS: NT-proBNP (BNP-Adult 18+) 121 pg/mL (<125)
[2024-07-12 16:41] LABS: Troponin I < 0.012 ng/mL (0.01-0.034)
[2024-07-12 16:42] VITALS: BP 114/62; PULSE 82; RESP 16; TEMP 37.4; O2SAT 95
--- NOTE | 2024-07-12 16:44 | DI.CT.S_ITS ---
PROCEDURE: CT ABDOMEN PELVIS W CON INDICATIONS: sepsis. cough. sob. r back/flank pain. diarrhea TECHNIQUE: After the administration of intravenous contrast, axial sections acquired from the lung bases to the pubic symphysis. Coronal and sagittal reformats were performed. For radiation dose reduction, the following was used: automated exposure control, adjustment of mA and/or kV according to patient size. COMPARISON: [facility], CT, ABDOMEN/PELVIS WITH CONTRAST, 04/13/2017, 9:41. FINDINGS: Image quality: Diagnostic. Right lower lobe pulmonary infiltrate, partially imaged with consolidation ABDOMEN: Liver: No solid mass. Gallbladder: No radiopaque gallstones or wall thickening. Biliary ducts: No biliary dilation. Pancreas: No ductal dilation. Spleen: Size is within normal limits. Adrenal Glands: No adrenal nodules. Kidneys and Ureters: No hydronephrosis. No solid mass. No complex renal cystic lesion which requires follow up. Stomach and Bowel: Normal colonic caliber, without significant wall thickening. Peritoneum: No abnormal intraperitoneal fluid. No free air. Ventral Wall: No significant ventral hernia. Abdominal Nodes: No retroperitoneal or mesenteric adenopathy by size criteria. Vessels: Aorta and inferior vena cava are normal in size. PELVIS: Pelvic Organs: Unremarkable. Bladder: No bladder wall thickening, accounting for underdistention. Pelvic Nodes: No enlarged lymph nodes. Miscellaneous: No inguinal hernias are seen. Bones: No aggressive osseous abnormality. IMPRESSION: Unremarkable CT abdomen pelvis without acute findings. No adenopathy. Right lower lobe pulmonary infiltrate. Please refer to the concurrent CT chest Approved by: Lonny Tinoco M.D. on 07/12/2024 at 16:52
--- NOTE | 2024-07-12 16:44 | DI.CT.S_ITS ---
PROCEDURE: CT ANGIO CHEST PE PROTOCOL INDICATIONS: sepsis. cough. sob. r back/flank pain. TECHNIQUE: After the administration of intravenous contrast, 2 mm thick sections acquired from the pulmonary apices to the posterior costophrenic angles. 3-dimensional maximum intensity projection (MIP) coronal and sagittal reformats were then acquired through the thorax. For radiation dose reduction, the following was used: automated exposure control, adjustment of mA and/or kV according to patient size. COMPARISON: None. FINDINGS: Image quality: Diagnostic. Pulmonary arteries: Pulmonary arteries are normal in size, and demonstrate no intraluminal filling defects to suggest central pulmonary embolism. Lower Neck: No enlarged lymph nodes. Thyroid: No thyroid nodules which require sonographic follow up, per consensus guidelines. Axillae: No enlarged lymph nodes. Chest Wall: Unremarkable. Bones: Unremarkable. Lungs and Pleura: Right lower lobe pulmonary infiltrate associated with right hilar adenopathy Heart: Heart size is normal. No pericardial effusion. Thoracic Vessels: No aortic aneurysm. Mediastinum and Meera: No enlarged lymph nodes. Esophagus: No wall thickening. No hiatal hernia. Upper Abdomen: Visualized upper abdomen solid organs and bowel loops appear normal. IMPRESSION: No pulmonary embolus. Right lower lobe pulmonary infiltrate with consolidation associated with right hilar adenopathy consistent with pneumonia. Follow-up to resolution to exclude underlying mass lesion Approved by: Lonny Tinoco M.D. on 07/12/2024 at 16:33
[2024-07-12 16:54] LABS: Adenovirus Not Detected (Not Detect); B. parapertussis Not Detected (Not Detecte); Bordetella pertussis Not Detected (Not Detect); Chlamydophila pneumoniae Not Detected (Not Detect); Coronavirus 229E Not Detected (Not Detect); Coronavirus HKU1 Not Detected (Not Detect); Coronavirus NL 63 Not Detected (Not Detect); Coronavirus OC43 Not Detected (Not Detect); Human Metapneumovirus Not Detected (Not Detect); Human Rhinovirus/Enterovirus Detected (Not Detect); Influenza A Not Detected (Not Detect); Influenza B Not Detected (Not Detect); Mycoplasma pneumoniae Not Detected (Not Detect); Parainfluenza Virus 1 Not Detected (Not Detect); Parainfluenza Virus 2 Not Detected (Not Detect); Parainfluenza Virus 3 Not Detected (Not Detect); Parainfluenza Virus 4 Not Detected (Not Detect); Respiratory Syncytial Virus Not Detected (Not Detect); SARS- CoV-2 Not Detected (Not Detecte)
[2024-07-12 16:56] LABS: Lipase 40 U/L (23-300)
[2024-07-12] MEDS: DOXYCYCLINE HYCLATE 100 MG TABLET PO (18:04)
[2024-07-12 18:55] VITALS: BP 115/73; PULSE 69; RESP 16; TEMP 36.4; O2SAT 98
== END 2024-07-12 18:58 | disposition home or self-care (01) ==
PROVIDERS: Emergency Medicine; Emergency Provider Physician Assistant; Family Provider Family Medicine; PCP Family Medicine
DX: J18.9 Pneumonia, unspecified organism (principal); B34.8 Other viral infections of unspecified site; N18.31 Chronic kidney disease, stage 3a; C85.9A Non-Hodgkin lymphoma, unspecified, in remission
CPT/HCPCS: 0241U; 36415; 71046; 71275; 74177; 80053; 81003; 82550; 83605; 83690; 83880; 84145; 84484; 85025; 85379; 85610; 85730; 87040; 87633; 93005; 96361; 96365; 96375; 99284; J0696; J1885; Q9967

== ENCOUNTER → 2024-08-29 10:44 | Outpatient (CLI) | payer OTHER, SELFPAY ==
--- NOTE | 2024-08-29 10:45 | DI.CT.S_ITS ---
PROCEDURE: CT CHEST WO CON INDICATIONS: Enlarged lymph nodes, pneumonia TECHNIQUE: Noncontrast 5 mm thick sections acquired from the pulmonary apices to the posterior costophrenic angles. 1 mm lung window, 5 mm thick coronal and sagittal and 7 mm axial MIP reformats were then acquired. For radiation dose reduction, the following was used: automated exposure control, adjustment of mA and/or kV according to patient size. COMPARISON: [facility], CT, CT ANGIO CHEST PE PROTOCOL, 07/12/2024, 16:52. FINDINGS: Image quality: Diagnostic. Lower Neck: No enlarged lymph nodes. Thyroid: No thyroid nodules which require sonographic follow up, per consensus guidelines. Axillae: No enlarged lymph nodes. Chest Wall: Right chest wall Port-A-Cath tip is in SVC.. Bones: No aggressive appearing bony lesions. Lungs and Pleura: No pneumothorax or pleural effusions. Mild dependent atelectasis in posterior aspect of bilateral lower lobes are seen. Previously noted right lower lobe opacity has resolved. No consolidation or suspicious nodules. Heart: Heart size is normal. No pericardial effusion. Thoracic Vessels: The aorta and pulmonary arteries demonstrate normal size. Mediastinum and Meera: Subcentimeter lymph nodes are seen in mediastinum and right hilar region now measures up to 8 mm in short axis diameter. No enlarged lymph nodes. Esophagus: No wall thickening. Small hiatal hernia. Upper Abdomen: Visualized upper abdomen solid organs and bowel loops appear normal. IMPRESSION: 1. Interval resolution of previously noted right lower lobe infiltrate. No acute cardiopulmonary process is seen on the current study. 2. No mediastinal or hilar lymphadenopathy is seen on the current study. Dictated by: David Sneed M.D. on 08/30/2024 at 20:34 Approved by: David Sneed M.D. on 08/30/2024 at 20:37
== END ==
LOC: CT 10:45
PROVIDERS: Family Provider Family Medicine; PCP Family Medicine; Referring Provider Family Medicine; Visit Provider Family Medicine
DX: J15.8 Pneumonia due to other specified bacteria (principal); R59.0 Localized enlarged lymph nodes; K44.9 Diaphragmatic hernia without obstruction or gangrene
CPT/HCPCS: 71250